=== PATIENT | male | born 1955 | race Two or more races ===

== ENCOUNTER 2020-04-23 11:57 | Outpatient (REF) | payer MEDICARE, MEDICAID, SELFPAY ==
--- NOTE | 2020-04-23 | XR_ITS ---
EXAMINATION: XR LUMBOSACRAL SPINE WITH OBLIQUES CLINICAL INFORMATION: Low back pain. COMPARISON: None TECHNIQUE: AP, both oblique, and lateral views of the lumbar spine. Lateral view of the lumbosacral junction. FINDINGS: There is normal lumbar lordosis and spinal alignment. Mild multilevel degenerative disc disease is seen from L2-L3 to L5-S1 with disc space narrowing and marginal osteophyte formation. The vertebral bodies are intact. There is no acute fracture. The neural foramina are patent. The facet joints are unremarkable. The soft tissues are unremarkable. IMPRESSION: Mild multilevel degenerative changes without acute abnormality.
== END 2020-04-23 11:58 | disposition home or self-care (01) ==
LOC: HO.XRAY 11:57
PROVIDERS: PCP Internal Medicine Geriatric Medicine; Visit Provider Internal Medicine Geriatric Medicine
DX: M54.5 Low back pain (principal)
CPT/HCPCS: 72110

== ENCOUNTER 2020-04-23 13:41 | Outpatient (REF) | payer MEDICARE, MEDICAID, SELFPAY | END 2020-04-23 13:42 | disposition home or self-care (01) | LOC: HO.SH 13:41 | PROVIDERS: Visit Provider Internal Medicine Geriatric Medicine | DX: H90.6 Mixed conductive and sensorineural hearing loss, bilateral (principal); H93.13 Tinnitus, bilateral | CPT/HCPCS: 72110; 92557; 92567; 92591 ==

== ENCOUNTER 2020-05-08 13:48 | Outpatient (REF) | payer MEDICARE, MEDICAID, SELFPAY | END 2020-05-08 13:49 | disposition home or self-care (01) | LOC: HO.HAP 13:48 | PROVIDERS: Visit Provider Internal Medicine Geriatric Medicine | DX: Z46.1 Encounter for fitting and adjustment of hearing aid (principal) | CPT/HCPCS: 92595; V5011; V5020; V5160; V5261; V5266 ==

== ENCOUNTER 2020-05-22 11:23 | Outpatient (REF) | payer MEDICARE, MEDICAID, SELFPAY ==
[2020-05-22 13:40] LABS: Blood Urea Nitrogen 11 mg/dL (9-16); Estimated Glomerular Filt Rate > 60
== END 2020-05-22 11:24 | disposition home or self-care (01) ==
LOC: HO.LAB 11:23
PROVIDERS: PCP Internal Medicine Geriatric Medicine; Visit Provider Internal Medicine Geriatric Medicine
DX: I82.220 Acute embolism and thrombosis of inferior vena cava (principal); I10 Essential (primary) hypertension
CPT/HCPCS: 82565; 84520

== ENCOUNTER 2020-05-25 09:37 | Outpatient (REF) | payer MEDICARE, MEDICAID, SELFPAY ==
--- NOTE | 2020-05-25 09:44 | CT_ITS ---
EXAMINATION: CT ANGIOGRAM ABDOMEN AND PELVIS CLINICAL INFORMATION: Abdominal wall. Question horseshoe kidney. Small echogenic area in the proximal IVC seen on ultrasound. COMPARISON: Previous abdominal ultrasound 04/18/2020 TECHNIQUE: Multiple axial images were obtained through the abdomen and pelvis following the administration of 85 mL of Omnipaque 350 intravenous contrast. Images were reviewed on a dedicated 3-D workstation. This CT examination was performed using dose optimization techniques as appropriate, variously including the following: *Automated exposure control *Adjustment of mA and/or kV according to patient size (this includes techniques or standardized protocols for targeted exams where dose is matched to indication/reason for exam; i.e. extremities or head) *Use of iterative reconstruction technique DLP: 315 mGy-cm FINDINGS: Vascular: The abdominal aorta is normal in caliber. The celiac axis, SMA and ANNE MARIE are normal in caliber and patent. There is a single right renal artery. There are 2 left renal arteries. The renal arteries are patent. The common, internal and external iliac arteries are patent and normal in caliber. The common femoral arteries are patent and normal in caliber. The femoral bifurcations are normal. The IVC is not optimally opacified and possible thrombus or lead cannot be assessed The lung bases are clear. The liver and gallbladder are unremarkable. The spleen is unremarkable. The pancreas is unremarkable. The adrenal glands are unremarkable. There is a horseshoe kidney. No renal stone, mass or hydronephrosis is seen. The bladder is not optimally distended. The prostate gland is unremarkable. Small and large bowel is unremarkable. There is a small umbilical hernia containing fat. No ascites or adenopathy is seen. Review of bone history degenerative spondylosis. CT/CT angio abdomen pelvis IMPRESSION: Horseshoe kidney. Single right renal artery. 2 left renal arteries. Small umbilical hernia containing fat. The IVC is not optimally opacified with contrast and the questioned ultrasound finding is difficult to assess.
[2020-05-25] MEDS: iohexoL 350 MG/ML 100 ML INFUS..BTL IV (10:25)
== END 2020-05-25 09:38 | disposition home or self-care (01) ==
LOC: HO.CT 09:37
PROVIDERS: PCP Internal Medicine Geriatric Medicine; Visit Provider Internal Medicine Geriatric Medicine
DX: I82.220 Acute embolism and thrombosis of inferior vena cava (principal); R51.9 Headache, unspecified
CPT/HCPCS: 74174; Q9967

== ENCOUNTER 2020-07-10 15:48 | Outpatient (REF) | payer MEDICARE, MEDICAID, SELFPAY ==
--- NOTE | 2020-07-10 | PFT_ITS ---
Forced vital capacity is slightly decreased. FEV1, RDQ45-02, and MVV are normal. Post bronchodilator therapy, no significant change. Total lung capacity is slightly decreased. Residual volume normal. Diffusion capacity normal. CONCLUSION: Very mild degree of restrictive pulmonary disorder. No obstructive airway disorder. No significant response to bronchodilator therapy. Clinical correlation recommended. MD LUIS Lemos/EDILSON / [id number]
== END 2020-07-10 15:49 | disposition home or self-care (01) ==
LOC: HO.RESP 15:48
PROVIDERS: PCP Internal Medicine Geriatric Medicine; Visit Provider Internal Medicine Geriatric Medicine
DX: R05 Cough (principal)
CPT/HCPCS: 94060; 94727; 94729

== ENCOUNTER → 2020-07-17 14:09 | Outpatient (REF) | payer MEDICARE, MEDICAID, SELFPAY | LOC: HO.SL 14:09 | PROVIDERS: PCP Internal Medicine Geriatric Medicine; Visit Provider Internal Medicine Geriatric Medicine | DX: G47.33 Obstructive sleep apnea (adult) (pediatric) (principal); G47.10 Hypersomnia, unspecified; R06.83 Snoring; R40.0 Somnolence; I10 Essential (primary) hypertension | CPT/HCPCS: 95806 ==

== ENCOUNTER 2020-09-10 11:48 | Outpatient (REF) | payer MEDICARE, MEDICAID, SELFPAY ==
--- NOTE | ~2020-09-10 | XR_ITS ---
EXAMINATION: XR SHOULDER, RIGHT CLINICAL INFORMATION: Pain in right shoulder COMPARISON: None TECHNIQUE: AP external rotation, Grashey, scapular Y, and axillary views of the right shoulder. FINDINGS: There is mild acromioclavicular osteoarthritis. Glenohumeral joint is well preserved. No fracture. Alignment is anatomic. Soft tissues are normal with no abnormal calcifications. Partially visualized lower cervical fusion hardware. XR/XR shoulder RT min 2V IMPRESSION: Mild right acromioclavicular joint arthrosis.
--- NOTE | ~2020-09-10 | XR_ITS ---
EXAMINATION: XR SHOULDER, LEFT CLINICAL INFORMATION: Pain in left shoulder COMPARISON: None TECHNIQUE: AP external rotation, Grashey, scapular Y, and axillary views of the left shoulder. FINDINGS: The bones and soft tissues are normal. No fracture. Glenohumeral and acromioclavicular alignment is anatomic with normal joint space. No abnormal soft tissue calcifications. XR/XR shoulder LT min 2V IMPRESSION: No acute osseous abnormality of the left shoulder.
== END 2020-09-10 11:49 | disposition home or self-care (01) ==
LOC: HO.XRAY 11:48
PROVIDERS: PCP Internal Medicine Geriatric Medicine; Referring Provider Internal Medicine Geriatric Medicine; Visit Provider Orthopaedic Surgery
DX: M25.511 Pain in right shoulder (principal); M25.512 Pain in left shoulder; I10 Essential (primary) hypertension; E78.00 Pure hypercholesterolemia, unspecified; F41.8 Other specified anxiety disorders; Z88.5 Allergy status to narcotic agent; Z91.018 Allergy to other foods; Z98.890 Other specified postprocedural states
CPT/HCPCS: 20610; 73030; 99202; J1100

== ENCOUNTER → 2021-08-08 13:02 | Outpatient (BNVA) | payer MEDICARE, MEDICAID, SELFPAY | PROVIDERS: PCP Internal Medicine Geriatric Medicine; Visit Provider Urology | DX: N40.1 Benign prostatic hyperplasia with lower urinary tract symptoms (principal); R39.11 Hesitancy of micturition; R97.20 Elevated prostate specific antigen [PSA] | CPT/HCPCS: 99202 ==

== ENCOUNTER 2021-09-13 14:23 | Outpatient (REF) | payer MEDICARE, MEDICAID, SELFPAY ==
[2021-09-13 17:30] LABS: PSA,Total (Free>4and<10) 4.51 ng/mL (0.00-4.00)
[2021-09-16 11:17] LABS: Free Prostate Spec Ag 0.6 ng/mL; Percent Free Prostate Spec Ag 14 % (calc) (>25); Prostate Specific Ag Total 4.3 ng/mL (< OR = 4.0)
== END 2021-09-13 14:24 | disposition home or self-care (01) ==
LOC: HO.LAB 14:23
PROVIDERS: PCP Internal Medicine Geriatric Medicine; Visit Provider Urology
DX: Z12.5 Encounter for screening for malignant neoplasm of prostate (principal); N13.8 Other obstructive and reflux uropathy; N40.1 Benign prostatic hyperplasia with lower urinary tract symptoms
CPT/HCPCS: 36415; 84153; 84154

== ENCOUNTER → 2021-09-24 14:56 | Outpatient (BNVA) | payer MEDICARE, MEDICAID, SELFPAY | PROVIDERS: PCP Internal Medicine Geriatric Medicine; Visit Provider Urology | DX: R97.20 Elevated prostate specific antigen [PSA] (principal); N40.1 Benign prostatic hyperplasia with lower urinary tract symptoms; R35.0 Frequency of micturition; R39.11 Hesitancy of micturition | CPT/HCPCS: 51798; 99212 ==

== ENCOUNTER 2022-01-24 08:37 | Outpatient (REF) | payer MEDICARE, MEDICAID, SELFPAY ==
--- NOTE | ~2022-01-24 | XR_ITS ---
EXAMINATION: XR LUMBOSACRAL SPINE CLINICAL INFORMATION: Low back pain. COMPARISON: None. TECHNIQUE: Three views of the lumbosacral spine. FINDINGS: There is maintained lumbar lordosis. The vertebral heights, alignment and disc heights are normal. There is mild ventral spondylosis at L2-L3 through L4-L5 disc level. No acute fracture, lytic or sclerotic process seen. SI joints are normal. The soft tissues are normal. XR/XR lumbar spine 2-3V IMPRESSION: Mild endplate spondylosis L2-L3, through L4-L5 disc levels. No visible acute fracture or dislocation seen.
== END 2022-01-24 08:38 | disposition home or self-care (01) ==
LOC: HO.XRAY 08:37
PROVIDERS: Absent Provider Internal Medicine Geriatric Medicine; PCP Internal Medicine Geriatric Medicine; Visit Provider Registered Nurse Community Health
DX: M54.50 Low back pain, unspecified (principal)
CPT/HCPCS: 72100

== ENCOUNTER 2022-07-18 09:59 | Outpatient (REF) | payer MEDICARE, MEDICAID, SELFPAY ==
[2022-07-18 14:19] LABS: PSA,Total (Free>4and<10) 4.76 ng/mL (0.00-4.00)
[2022-07-22 07:29] LABS: Free Prostate Spec Ag 0.7 ng/mL; Percent Free Prostate Spec Ag 16 % (calc) (>25); Prostate Specific Ag Total 4.3 ng/mL (< OR = 4.0)
== END 2022-07-18 10:00 | disposition home or self-care (01) ==
LOC: HO.LAB 09:59
PROVIDERS: PCP Internal Medicine Geriatric Medicine; Visit Provider Urology
DX: Z12.5 Encounter for screening for malignant neoplasm of prostate (principal); N13.8 Other obstructive and reflux uropathy; N40.1 Benign prostatic hyperplasia with lower urinary tract symptoms; R97.20 Elevated prostate specific antigen [PSA]
CPT/HCPCS: 36415; 84153; 84154

== ENCOUNTER 2023-07-21 10:27 | Outpatient (REF) | payer MEDICARE, MEDICAID, SELFPAY ==
[2023-07-21 11:05] LABS: MANUAL DIFF FLAG NO
[2023-07-21 11:07] LABS: Basophils Absolute Auto 0.1 X10*3/uL (0.0-0.2); Basophils Percent Auto 0.5 % (0-2); Eosinophils Absolute Auto 0.1 X10*3/uL (0.0-0.4); Eosinophils Percent Auto 0.8 % (0-4); Hematocrit 48.1 % (42.0-52.0); Hemoglobin 15.3 g/dl (14.0-18.0); Imm Gran Abs Auto 0.11 X10*3/uL (0.00-0.03); Imm Gran Pct Auto 1.1 % (0.0-0.4); Lymphocytes Absolute Auto 2.2 X10*3/uL (1.2-4.9); Lymphocytes Percent Auto 20.7 % (20-40); Mean Corpuscular HGB Conc 31.8 g/dl (31.0-36.0); Mean Platelet Volume 9.3 fL (9.4-12.4); Monocytes Absolute Auto 0.8 X10*3/uL (0.1-1.2); Monocytes Percent Auto 7.4 % (2-11); Neutrophils Absolute Auto 7.3 x10*3/uL (2.0-8.3); Neutrophils Percent Auto 69.5 % (45-73); Platelet Count 287 X10*3/uL (160-400); Red Blood Count 5.66 X10*6/uL (4.60-5.80); Red Cell Distribution Width 13.7 % (11.0-16.0); White Blood Count 10.4 X10*3/uL (4.8-10.8)
[2023-07-21 12:06] LABS: Alanine Aminotransferase 32 U/L (0-40); Albumin Level 4.4 g/dL (3.5-5.0); Alkaline Phosphatase 94 U/L (39-117); Anion Gap 14 (12-20); Aspartate Amino Transferase 17 U/L (5-37); Bilirubin Total 0.4 mg/dL (0.0-1.0); Blood Urea Nitrogen 20 mg/dL (9-16); Calcium 10.1 mg/dL (8.4-10.2); Carbon Dioxide 27 mmol/L (22-29); Chloride 104 mmol/L (96-108); Cholesterol 205 mg/dL (<200); Estimated Glomerular Filt Rate 58; Glucose Random 83 mg/dL (60-115); HDL Cholesterol 68 mg/dL (>40); LDL Cholesterol Calculated 120 mg/dL (<100); Potassium 5.2 mmol/L (3.3-5.1); Sodium 140 mmol/L (135-145); Total Protein 7.6 g/dL (6.5-8.0); Triglycerides 87 mg/dL (<150)
[2023-07-21 12:08] LABS: Microalbum/Creatinine Ratio Ur 4.4 ug/mg cr (<30)
== END 2023-07-21 10:28 | disposition home or self-care (01) ==
LOC: HO.HHCL 10:27
PROVIDERS: Visit Provider Internal Medicine Geriatric Medicine
DX: I10 Essential (primary) hypertension (principal); Z85.040 Personal history of malignant carcinoid tumor of rectum; Z79.899 Other long term (current) drug therapy
CPT/HCPCS: 36415; 80053; 80061; 82043; 82570; 85025

== ENCOUNTER 2023-09-15 13:21 | Outpatient (AMB) | payer MEDICARE, MEDICAID, SELFPAY ==
--- NOTE | 2023-09-15 13:22 | MHC.OFFVIS ---
Intake Intake Visit Reasons: Personal Hx malignant carcinoid tumor of rectum Intake Note: Maik presents as a telehealth today Allergies mushroom Allergy (Severe, Verified 09/15/23 13:22) Swelling morphine Allergy (Unknown, Uncoded 09/15/23 13:22) nausea HPI HPI Comments History of Present Illness Details This is a 68-year-old gentleman with past medical history of carcinoid tumor of the rectum diagnosed in who has been referred to us for surveillance colonoscopy. Currently, pt describes No acute gastrointestinal complaints. He does not report any abdominal pain, nausea, diarrhea, blood in stool. He in fact does not recall prior history of rectal carcinoid or where this was diagnosed. From the PCP notes, appears to have been under care of Porter GALICIA. No fam hx of CRC in first degree relatives but does report hx of gastric ca in his mother. Reports has never had an EGD. Not sure if checked for H Pylori. [facility] Medical History Bilateral shoulder pain Acid reflux High blood cholesterol Sciatica Neck problem Depression Thoracic back sprain Anxiety Asthma Hypertension Surgical History History of cataract removal with insertion of prosthetic lens History of cervical spinal surgery Social History Alcohol intake: never Current occupational status: retired Review of Systems Const All systems reviewed & are unremarkable except as noted in HPI and below Physical Exam Vital Signs: Phone televisit Assessment & Plan Assessment & Plan (1) Carcinoid tumor of rectum: Code(s): D3A.026 - Benign carcinoid tumor of the rectum (2) Family history of gastric carcinoma: Code(s): Z80.0 - Family history of malignant neoplasm of digestive organs Plan From available records, was supposed to have a surveillance colonoscopy in 2020, for which he is overdue. In addition, given family history of gastric cancer, would recommend at least one time upper endoscopy exam with mapping biopsies as well as checking H Pylori. PLan: - EGD/ colo to be booked - Split PEG prep reviewed over the phone - Follow up after endo Medications: New peg 3350-electrolytes 236-22.74-6.74 -5.86 gram (Golytely) as per split prep instructions, until fecal effluent is clear 240 mL PO Q10M 4,000 mL 0RF colonoscopy Telehealth Telehealth Location of provider rendering services: practice address Location of patient: address on file Patient Identification confirmed using: Name, : Yes Telehealth method: voice only Patient verbally consented to treatment: Yes Patient verbally consented to billing insurance company: Yes Patient informed of any privacy concerns related to visit: Yes Minutes spent on Phone/Video with Pt.: 15 Coding Level of Care Code Tele New Pt Level 4 (96691) Diagnoses Carcinoid tumor of rectum D3A.026 Family history of gastric carcinoma Z80.0
== END 2023-09-15 15:53 | disposition home or self-care (01) ==
LOC: HO.HGI 13:22
PROVIDERS: PCP Internal Medicine Geriatric Medicine; Visit Provider Internal Medicine
DX: D3A.026 Benign carcinoid tumor of the rectum (principal); Z80.0 Family history of malignant neoplasm of digestive organs
CPT/HCPCS: 99442

== ENCOUNTER → 2023-09-15 13:21 | Outpatient (BNVA) | payer MEDICARE, MEDICAID, SELFPAY | PROVIDERS: PCP Internal Medicine Geriatric Medicine; Visit Provider Internal Medicine ==

== ENCOUNTER → 2023-10-15 14:52 | Outpatient (REF) | payer MEDICARE, MEDICAID, SELFPAY ==
--- NOTE | 2023-10-15 14:55 | CA_ITS ---
Transthoracic Echocardiogram Patient (Last, First, Middle): Maik Pham A Gender: Male Date of : 1955 Age: 68 Procedure Date: 10/15/2023 Procedure Type: Transthoracic Echocardiogram Location: OP Height: 185.42 cm Weight: 111.59 kg BSA: 2.35 m2 Heart Rate: bpm BP: 144 / 100 mmHg Obstetrics Gyn: CODI Referring MD: Eric Montoya MD Customer Service Advisor: Yosi Lewis MD Symptoms: I10. HTN Study Quality: Adequate ECG Rhythm: Sinus Conclusions: - 1. Normal LV ejection fraction 55-60% with grade 1 diastolic dysfunction 2. Mild aortic regurgitation 3. Normal RV systolic pressure 4. Mildly dilated ascending aorta 3.9 cm 5. No gross pericardial effusion Findings Left Ventricle Normal left ventricular size, thickness, and systolic function. The visually estimated ejection fraction is between 55-60%. There is no dynamic left ventricular outflow tract obstruction. Spectral Doppler is indicative of an impaired relaxation filling pattern. E/E prime ratio is <8, consistent with normal filling pressures. Evidence suggests grade I (mild) diastolic dysfunction. There is mild septal asymmetric hypertrophy. Peak GLS is 14.7%, moderately reduced. Right Ventricle Normal right ventricular cavity size and systolic function. Atria The left atrium is likely dilated. Interatrial shunt cannot be excluded. The right atrium is normal in size. Aortic Valve Normal aortic valve structure and function. There is no aortic valve stenosis. There is mild aortic valve regurgitation. Mitral Valve Normal mitral valve structure and function. There is trace mitral valve regurgitation. There is no mitral valve stenosis. Pulmonic Valve The pulmonic valve is likely normal. There is trace pulmonic valve regurgitation. Tricuspid Valve Normal tricuspid valve structure. There is trace tricuspid valve regurgitation. The right ventricular systolic pressure is normal. The right ventricular systolic pressure is 18 mmHg. Normal right atrial pressure. There is no evidence of pulmonary hypertension. Great Vessels The pulmonary artery was not well visualized. There is mild dilatation of the ascending aorta measuring 3.90 cm. Venous The inferior vena cava is normal in size and collapses greater than 50% with inspiration. Pericardium/Pleural There is no evidence of pericardial effusion. Prior Study Comparison No prior study available for comparison. Measurements 2D Linear Measurements IVSd: 1.24 0.6-0.9/0.6-1.0 cm LVIDd: 4.36 3.9-5.3/4.2-5.9 cm LVIDd Index: 1.86 2.4-3.2/2.2-3.1 cm/m2 LVIDs: 2.40 2.0-3.6 cm LVPWd: 1.04 0.7-1.1 cm LA Diam: 3.90 2.7-3.8/3.0-4.0 cm LAIDs Index: 1.66 1.5-2.3 cm/m2 LV Mass: 218.27 67-162/88-224 g LV Mass Index: 92.88 43-95/49-115 g/m2 LVOT Diam: 2.30 3.0+(-)1.3 cm 2D Systolic Function EF 4C: 55.20 >55% EF 2C: 57.00 >55% EF BiP: 56.10 >55% Mitral Valve MV Pk E: 0.39 MV PK A: 0.43 MV Decel Time: 235.00 E/A: 0.90 E'Lateral: 6.85 E'Medial: 5.77 E/E' Med: 6.80 E/E' Lat: 5.80 PHT: 69.00 MVA PHT: 3.19 Decel Armstrong: 1.68 Aortic Valve AoV Pk Erwin: 1.21 AoV Mn Erwin: 0.88 AoV VTI: 0.25 AoV Pk Grad: 6.00 Aov Mn Grad: 3.00 MARILIN Cont.VTI: 3.09 AI Pk Erwin: 3.70 AI Armstrong: 1.78 LVOT LVOT Pk Erwin: 0.88 LVOT Mn Erwin: 0.59 LVOT VTI: 0.19 LVOT Pk Grad: 3.00 LVOT Mn Grad: 2.00 LVOT Diam: 2.30 LVOT Area: 4.15 Diastolic Function MV Pk E: 0.39 MV Pk A: 0.43 E/A: 0.90 E'Medial: 5.77 E/E' Med: 6.80 E' Laterial: 6.85 E/E' Lat: 5.80 Right Ventricle TAPSE (mm): 25.80 TVS' Erwin: 10.90 Tricuspid Valve TR Pk Erwin: 1.91 TR Pk Grad: 15.00 RA Press: 3.00 RVSP: 18.00 Great Vessels Aorta Sinus of Valsalva: 3.72 2.0-3.5 cm Ao Asc: 3.90 2.1-3.4 cm Updated in Other Vendor System with Status of Final Yosi Lewis MD electronically signed on 10/16/2023 1:31:46 PM with status of Final
== END ==
LOC: HO.CARD 14:52
PROVIDERS: PCP Internal Medicine Geriatric Medicine; Visit Provider Internal Medicine Geriatric Medicine
DX: I10 Essential (primary) hypertension (principal)
CPT/HCPCS: 93306; 93356

== ENCOUNTER → 2023-10-15 14:55 | Outpatient (BNV) | payer MEDICARE, MEDICAID, SELFPAY | PROVIDERS: PCP Internal Medicine Geriatric Medicine; Visit Provider Internal Medicine Cardiovascular Disease | DX: I36.1 Nonrheumatic tricuspid (valve) insufficiency (principal) | CPT/HCPCS: 93306 ==

== ENCOUNTER 2024-04-13 08:48 | Outpatient (REF) | payer MEDICARE, MEDICAID, SELFPAY ==
[2024-04-13 11:40] LABS: Anion Gap 10 (12-20); Blood Urea Nitrogen 15 mg/dL (9-16); Calcium 9.8 mg/dL (8.4-10.2); Carbon Dioxide 29 mmol/L (22-29); Chloride 104 mmol/L (96-108); Estimated Glomerular Filt Rate > 60; Glucose Random 119 mg/dL (60-115); Sodium 139 mmol/L (135-145)
== END 2024-04-13 08:49 | disposition home or self-care (01) ==
LOC: HO.HHCL 08:48
PROVIDERS: Visit Provider Internal Medicine Geriatric Medicine
DX: I10 Essential (primary) hypertension (principal)
CPT/HCPCS: 36415; 80048

== ENCOUNTER 2024-08-05 11:01 | Outpatient (AMB) | payer MEDICARE, MEDICAID, SELFPAY ==
--- NOTE | 2024-08-05 11:04 | A.OFFVIS_ITS ---
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 Intake Note: New patient dx chest pain believe he had stress test maybe 7-8 years ago was in [facility] ed in Nov for chest pain Medical Bill Processor Required: Yes Medical Bill Processor Services: Medical Bill Processor Offered & Declined Rn Enterostomal: Rn Enterostomal Present Accompanied by: Spouse Allergies mushroom Allergy (Severe, Verified 09/15/23 13:22) Swelling morphine Allergy (Intermediate, Verified 06/24/24 10:34) Nausea Medication List - Last Reconciled 08/05/24 by Yosi Lewis MD acetaminophen 325 mg PO Q8H PRN albuterol sulfate 90 mcg/actuation (Ventolin HFA) 2 puffs inhalation Q4H PRN amlodipine-valsartan 10-320 mg 1 tab PO DAILY aspirin 81 mg PO DAILY PRN carboxymethylcellulose-glycern 0.5-0.9 % (Refresh Optive) 1 drp ophthalmic (eye) QID celecoxib 100 mg PO DAILY cetirizine 10 mg PO DAILY docusate sodium 100 mg PO DAILY fluticasone furoate 200 mcg/actuation (Arnuity Ellipta) 1 inh inhalation DAILY fluticasone propionate 220 mcg/actuation 1 puff PO BID fluticasone propionate 50 mcg/actuation sprays intranasal hydroxyzine HCl 25 mg PO BEDTIME PRN meloxicam 7.5 mg PO QAM montelukast 10 mg PO DAILY naloxone 4 mg/actuation (Narcan) 4 mg intranasal Q2M PRN naproxen 500 mg PO BID PRN omeprazole 40 mg PO DAILY oxycodone 10 mg PO BID PRN peg 3350-electrolytes 236-22.74-6.74 -5.86 gram (Golytely) 240 mL PO Q10M polyvinyl alcohol 1.4% 1 drp ophthalmic (eye) BID sildenafil (Viagra) 50 mg PO DAILY PRN HPI Comments Details: Thank you for referring Maik in cardiology consultation today for precordial chest discomfort. Patient is accompanied by his who acts as interpreter for the deaf. They declined a certified interpreter for the deaf. Patient has been having symptoms of precordial chest pain for the last few months. He describes as tingling pressure-like discomfort in the precordial area mostly happening at rest. Symptoms last for few minutes. Symptoms can also happen with exercise as per the . Also compensated exertional shortness of breath. He has longstanding history of hypertension which is controlled but sometimes with cervical spine related discomfort blood pressure remains high. He was family history of premature coronary artery disease in mother requiring coronary artery bypass grafting at his age group. He has no history of hypertension. Has mild hyperlipidemia currently not on any medications. He denies any prolonged palpitation irregular heartbeat. No lightheadedness, syncope. He does have at nighttime notices apneic spells and says gets really called and then wakes up shivering. Patient denies any orthopnea, PND, leg edema. Patient does have exertional shortness of breath. [facility] Medical History Bilateral shoulder pain Acid reflux High blood cholesterol Sciatica Neck problem Depression Thoracic back sprain Anxiety Asthma Hypertension Surgical History History of cataract removal with insertion of prosthetic lens History of cervical spinal surgery Social History Alcohol intake: never Current occupational status: retired Review of Systems Const Denies chills, Denies daytime sleepiness, Denies fatigue, Denies fever(s), Denies frequent falls, Denies poor appetite, Denies snoring, Denies stops breathing during sleep, Denies weakness, Denies weight gain and Denies weight loss Eyes Denies loss of vision ENT Denies dizziness and Denies hearing loss Card Denies chest pain, Denies claudication, Denies leg edema, Denies lightheadedness, Denies palpitations, Denies dyspnea, Denies dyspnea on exertion and Denies orthopnea Resp Denies cough, Denies excessive phlegm production, Denies dyspnea, Denies dyspnea on exertion, Denies snoring and Denies wheezing GI Denies abdominal pain, Denies hematochezia, Denies change in bowel habits, Denies nausea and Denies vomiting Denies dysuria and Denies urinary frequency Musc Denies arthralgias, Denies muscle weakness, Denies numbness and Denies other (frequent falls) Skin/Breast Denies nail changes and Denies rash Neuro Denies Abnormal speech present, Denies dizziness, Denies frequent falls, Denies loss of vision, Denies memory loss, Denies numbness and Denies weakness Psych Denies depression and Denies memory loss Endo Denies fatigue and Denies palpitations Nicloás/Lymph Reports easy bruising and Reports other (anemia) Aller/Immun Denies wheezing Physical Exam Vital Signs: Last Vital Signs Pulse 84 08/05/24 11:05 BP 130/80 08/05/24 11:05 BMI result Body Mass Index 32.0 Const General: cooperative, comfortable, no acute distress, well developed, alert and awake Nutritional Appearance: well nourished and obese Orientation/consciousness: patient oriented x3 Limitations: no limitations HEENT Head: Yes normocephalic and Yes atraumatic Neck Neck: Yes trachea midline, Yes supple and Yes no JVD Resp Effort & Inspection: normal respiratory effort Auscultation: clear to auscultation bilaterally Cardio Jugular venous distension: no JVD Palpation: normal PMI Rate: regular rate Rhythm: regular rhythm Heart sounds: S1 normal heart sound present, S2 normal heart sound present, no click, no gallops, no murmurs and no rubs GI Auscultation: normal bowel sounds Skin General skin exam: no rashes or lesions noted Neuro General: patient oriented x3 and no focal motor deficits Speech: No Abnormal speech present Extrem General: Yes no clubbing, cyanosis or edema Office Procedures EKG Details: EKG shows normal sinus rhythm with PACs as well as PVCs nonspecific ST T wave changes [id number], Complete Assessment & Plan Assessment & Plan (1) Atypical chest pain: Code(s): R07.89 - Other chest pain Category: Medical Plan: Atypical chest pain this elderly gentleman with multiple risk factors including hypertension, family history with limited exercise capacity. EKG showed left anterior fascicular block with nonspecific ST T wave changes. Recommend exercise myocardial perfusion imaging to further evaluate for myocardial ischemia as cause of his chest pain. Less likely. If this is negative, would recommend a GI workup. Also suggest echocardiogram to evaluate LV systolic and diastolic function to evaluate for LVH and hypertensive heart disease as well as pulmonary hypertension. These tests will be scheduled in near future. Further treatment based on the findings. He is also noted to have episodes that are highly suggestive of sleep apnea and possibly bradycardia at nighttime. Would suggest a 30 day event monitor to evaluate for the same as well as home sleep study to evaluate for the same. Further treatment based on the finding. (2) Hypertension: Code(s): I10 - Essential (primary) hypertension Category: Medical Plan: Hypertension which is currently well optimized on current therapy. Importance of good blood pressure control was discussed. Continue current therapy. Low- salt diet was discussed. Workup of sleep apnea as above. Adequate bleeding control was discussed. Stress mitigation strategies was discussed. Target goal blood pressure less than 130/84. Also would consider statin therapy to target goal LDL less than 70 mg/dL. Will follow up in the clinic in 2 months time, sooner p.r.n.. Thank you for allowing me to partake in his care Orders: Orders NM cardiolite stress test 2 Weeks R07.89 - Other chest pain, R07.9 - Chest pain, unspecified RT home sleep study Today R06.81 - Apnea, not elsewhere classified CA stress test Today R07.89 - Other chest pain CA echo transthoracic complete Today R07.89 - Other chest pain ECG 30 day event monitor Today R07.89 - Other chest pain Coding Level of Care Code New Pt Level 4 (29978) Diagnoses Atypical chest pain R07.89 Hypertension I10 CPT Codes EKG - CPT: 23453-[id number], Complete ([id number])
[2024-08-05 11:05] VITALS: BP 130/80; PULSE 84; BMI 32.0
== END 2024-08-05 12:48 | disposition home or self-care (01) ==
PROVIDERS: PCP Internal Medicine Geriatric Medicine; Visit Provider Internal Medicine Cardiovascular Disease
DX: R07.89 Other chest pain (principal); I10 Essential (primary) hypertension; I49.1 Atrial premature depolarization; I49.3 Ventricular premature depolarization
CPT/HCPCS: 93010; 99214

== ENCOUNTER → 2024-08-05 11:01 | Outpatient (BNVA) | payer MEDICARE, MEDICAID, SELFPAY | PROVIDERS: PCP Internal Medicine Geriatric Medicine; Visit Provider Internal Medicine Cardiovascular Disease | DX: R07.89 Other chest pain (principal); I10 Essential (primary) hypertension; R94.31 Abnormal electrocardiogram [ECG] [EKG] | CPT/HCPCS: 93005; 99212 ==

== ENCOUNTER → 2024-08-23 10:01 | Outpatient (BNV) | payer MEDICARE, MEDICAID, SELFPAY | PROVIDERS: PCP Internal Medicine Geriatric Medicine; Visit Provider Internal Medicine | DX: I42.2 Other hypertrophic cardiomyopathy (principal) | CPT/HCPCS: 93306 ==

== ENCOUNTER 2024-10-03 15:28 | Outpatient (REF) | payer MEDICARE, MEDICAID, SELFPAY | END 2024-10-03 15:29 | disposition home or self-care (01) | LOC: HO.CT 15:28 | PROVIDERS: PCP Internal Medicine Geriatric Medicine; Visit Provider Internal Medicine Cardiovascular Disease | DX: R06.81 Apnea, not elsewhere classified (principal); R06.83 Snoring | CPT/HCPCS: 95806 ==

== ENCOUNTER → 2024-10-03 15:37 | Outpatient (BNV) | payer MEDICARE, MEDICAID, SELFPAY | PROVIDERS: PCP Internal Medicine Geriatric Medicine; Visit Provider Internal Medicine | DX: R06.83 Snoring (principal); G47.10 Hypersomnia, unspecified | CPT/HCPCS: 95806 ==

== ENCOUNTER → 2024-11-16 08:04 | Outpatient (REF) | payer MEDICARE, MEDICAID, SELFPAY ==
--- OUTSIDE RECORDS SUMMARY | 2024-11-16 08:08 | XMS_ITS | Encounter Summary ---
Author Organization [employer] Address [address] [facility] [address] [place] [address] Care Team Providers Care Hogshead Hand Name Role Phone Name, Eric MUNGUIA Primary Care Provider [phone] Lauren Alexis PharmD Unavailable [phone] Reason for Visit * Reason Onset Date Comments Med Refill 03/17/2024 Encounter Details Date Type Department Care Team (Late st Contact Info) Description 03/17/2024 Refill [facility] MEDICINE [address], [place] [id number] Name, MD Eric [address], [place] [phone] Social History Tobacco Use Types Packs/Day Years Used Date Smoking Tobacco: Never Smokeless Tobacco: Never Alcohol Use Standard Drinks/Week Comments Never 0 (1 standard drink = 0.6 oz pur e alcohol) Alcohol Answer Date Recorded Frequency of Alcohol Consumption Not on file 02/24/2024 Average Number of Drinks Not on file 024 Frequency of Binge Drinking Not on file 01/2024 Score 0 02/24/2024 Depression Answer Date Recorded Patient Health Questionnaire-9 Score 0 02/24/2024 Patient Health Questionnaire-9 Score 0 02/24/2024 Last PHQ-9: Questionnaire Data Not on file 0 02/24/2024 Housing Stability Answer Date Recorded What is your housing situation today? I have sandy johnson 02/24/[address] you li ve. Do you have problems with any of the following? None of the above 02/24/2024 Food Insecurity Answer Date Recorded Within the past 12 months, y ou worried that your food would run out before you got money to buy more: Never True 02/24/2024 Within the past 12 months,th e food you bought just didn't last and you didn't have enough money to get more: Never True 01/2024 Transportation Answer Date Recorded In the past 12 months, has l ack of transportation kept you from medical appts, meetings, work or from getting things needed for daily living? No 02/24/2024 Utilities Answer Date Recorded In the past 12 months, has t he electric, gas, oil or water company threatened to shut off services in your home? No 02/24/2024 Depression Answer Date Recorded Patient Health Questionnaire-2 Score 0 02/24/2024 Internet Access Answer Date Recorded Internet Access Q1 No 03/21/2024 Internet Access Q2 I do not want or need it 08/2023 Sex and Gender Information Value Date Recorded Sex Assigned at Male 05/19/2022 10:23 AM EDT Legal Sex Male 10:23 AM EDT Gender Identity Male 05/19/2022 10:23 AM EDT Sexual Orientation Straight 05/19/2022 10 :23 AM EDT documented as of this encounter Plan of Treatment Upcoming Encounters Date Type Department Care Team (Late st Contact Info) Description 12/28/2024 11:30 AM EDT Clinical Support [facility] MEDICINE [address] [place] [phone] Andreia Lyles RN 01/11/2025 3:30 PM EDT Office Visit [facility] MED[facility]INE [address] [place] [phone] Eric Montoya MD [address] [place] [phone] documented as of this encounter Visit Diagnoses Not on filedocumented in this encounter Additional Health Concerns Assessment Noted Time PHQ-9 Depression Total Score: 0 02/24/20 24 3:45 PM EDT documented as of this encounter Care Teams Hogshead Hand Relationship Specialty Start Date End Date Eric Montoya MD [address] [place] [id number] PCP - General Family Medicine 09/14/15 Lauren Alexis, AnnD [address] [place] [phone] Pharmacist Internal Medicine 04/19/24 documented as of this encounter
--- OUTSIDE RECORDS SUMMARY | 2024-11-16 08:08 | XMS_ITS | Encounter Summary ---
Author Organization [employer] Address [address] [place] [address] 7t [place] [address] Care Team Providers Care Medical Insurance Coding Specialist Name Role Phone Name, Eric MUNGUIA Primary Care Provider [phone] Lauren Alexis PharmD Unavailable Reason for Visit * Reason Onset Date Comments Med Refill 01/23/2023 Encounter Details Date Type Department Care Team (Late st Contact Info) Description 01/23/2023 Refill [facility] [address] [place] [address] Yudelka Kaiser MD [address] [place], [place] [phone] Essential hypertension Social History Tobacco Use Types Packs/Day Years Used Date Smoking Tobacco: Never Smokeless Tobacco: Never Alcohol Use Standard Drinks/Week Comments Never 0 (1 standard drink = 0.6 oz pur e alcohol) Depression Answer Date Recorded Patient Health Questionnaire-9 Score 0 12/23/2022 Depression Answer Date Recorded Patient Health Questionnaire-2 Score 0 12/23/2022 Sex and Gender Information Value Date Recorded Sex Assigned at Male 05/19/2022 10:23 AM EDT Legal Sex Male 10:23 AM EDT Gender Identity Male 05/19/2022 10:23 AM EDT Sexual Orientation Straight 05/19/2022 10 :23 AM EDT documented as of this encounter Plan of Treatment Upcoming Encounters Date Type Department Care Team (Late st Contact Info) Description 12/28/2024 11:30 AM EDT Clinical Support [facility] [address] [place] [address] Andreia Lyles RN 01/11/2025 3:30 PM EDT Office Visit [facility] [address] [place] [address] Name, MD Eric [address] [place] [address] documented as of this encounter Visit Diagnoses Diagnosis Essential hypertension Unspecified essential hypertension documented in this encounter Additional Health Concerns Assessment Noted Time PHQ-9 Depression Total Score: 0 12/24/19 23 4:02 PM EDT documented as of this encounter Care Teams Medical Insurance Coding Specialist Relationship Specialty Start Date End Date Name, MD Eric [address] [place] [address] PCP - General Family Medicine 09/14/15 Lauren Alexis PharmD [address] [place] [address] Pharmacist Internal Medicine 04/19/24 documented as of this encounter
--- OUTSIDE RECORDS SUMMARY | 2024-11-16 08:08 | XMS_ITS | Encounter Summary ---
Author Organization [employer] Address [address] [place] [address] 7 [place] [address] Care Team Providers Care Exchange Architect Name Role Phone Name, Eric MUNGUIA Primary Care Provider [phone] Lauren Alexis PharmD Unavailable Reason for Visit * Reason Onset Date Comments Appointment Request 01/27/2023 Encounter Details Date Type Department Care Team (Late st Contact Info) Description 01/27/2023 Telephone [facility] 230 [place], [place] [phone] Name, MD Eric [address] [place], [place] [phone] Appointment Request Social History Tobacco Use Types Packs/Day Years [...] AM EDT documented as of this encounter Miscellaneous Notes * Telephone Encounter - Niki Mathew - 01/27/2023 1:35 PM EDT Tc from documented in this encounter Plan of Treatment Upcoming Encounters Date Type Department Care Team (Late st Contact Info) Description 12/28/2024 11:30 AM EDT Clinical Support [address] [place] [address] Andreia Lyles RN 01/11/2025 3:30 PM EDT Office Visit [address] [address] Name, MD Eric [address] [place] [address] documented as of this encounter Visit Diagnoses Not on filedocumented in this encounter Additional Health Concerns Assessment Noted Time PHQ-9 Depression Total Score: 0 12/24/19 23 4:02 PM EDT documented as of this encounter Care Teams Exchange Architect Relationship Specialty Start Date End Date Name, MD Eric [address] [place] [address] PCP - General Family Medicine 09/14/15 Lauren Alexis PharmD [address] [place] [address] Pharmacist Internal Medicine 04/19/24 documented as of this encounter
--- OUTSIDE RECORDS SUMMARY | 2024-11-16 08:08 | XMS_ITS | Encounter Summary ---
Author Organization [employer] Address [address] [facility] 7 [place] [address] Care Team Providers Care Foxing Cutting Machine Operator Name Role Phone Name, Eric MUNGUIA Primary Care Provider [phone] Lauren Alexis PharmD Unavailable [phone] Reason for Visit * Reason Onset Date Comments Med Refill 03/17/2024 Encounter Details Date Type Department Care Team (Late st Contact Info) Description 03/17/2024 Refill [facility] 230 [place], [place] [phone] Name, MD Eric 230 [place], [place] [phone] Social History Tobacco Use Types Packs/Day Years [...] Description 12/28/2024 11:30 AM EDT Clinical Support [facility] [address] [place] [address] Andreia Lyles RN 01/11/2025 3:30 PM EDT Office Visit [facility] [address] [place] [address] Eric Montoya MD [address] [place] [address] documented as of this encounter Visit Diagnoses Not on filedocumented in this encounter Additional Health Concerns Assessment Noted Time PHQ-9 Depression Total Score: 0 02/24/20 24 3:45 PM EDT documented as of this encounter Care Teams Foxing Cutting Machine Operator Relationship Specialty Start Date End Date Eric Montoya MD [address] [place] [address] PCP - General Family Medicine 09/14/15 Lauren Alexis, AnnD [address] [place] [address] Pharmacist Internal Medicine 04/19/24 documented as of this encounter
--- OUTSIDE RECORDS SUMMARY | 2024-11-16 08:08 | XMS_ITS | Encounter Summary ---
Author Organization [employer] Address [address] [facility] 7t [place] [address] Care Team Providers Care Manager Books Name Role Phone Name, Eric MUNGUIA Primary Care Provider [phone] Lauren Alexis PharmD Unavailable [phone] Reason for Visit * Reason Onset Date Comments Med Refill 08/17/2024 Encounter Details Date Type Department Care Team (Late st Contact Info) Description 08/17/2024 Refill [facility] 230 [place], [place] [phone] Name, MD Eric 230 [place], [place] [phone] Unspecified asthma with (acute) exacerbation Social History Tobacco Use Types Packs/Day Years Used Date Smoking Tobacco: Never Passive Smoke Exposure: Never Smokeless Tobacco: Never Alcohol Use Standard Drinks/Week Comments Never 0 (1 standard drink = 0.6 oz pur e alcohol) Alcohol Answer Date Recorded Frequency of Alcohol Consumption Not on file 02/24/2024 Average Number of Drinks Not on file 024 Frequency of Binge Drinking Not on file 0801/2024 Score 0 02/24/2024 Depression Answer Date Recorded [...] Description 12/28/2024 11:30 AM EDT Clinical Support [facility] [address] [place] [address] Andreia Lyles RN 01/11/2025 3:30 PM EDT Office Visit [facility] [address] [place] [address] Eric Montoya MD 230 [place] [address] documented as of this encounter Visit Diagnoses Diagnosis Unspecified asthma with (acute) exacerbation documented in this encounter Additional Health Concerns Assessment Noted Time PHQ-9 Depression Total Score: 0 02/24/20 24 3:45 PM EDT documented as of this encounter Care Teams Manager Books Relationship Specialty Start Date End Date NameEric MD [address] [place] [address] PCP - General Family Medicine 09/14/15 Lauren Alexis, Amanda [address] [place] [address] Pharmacist Internal Medicine 04/19/24 documented as of this encounter
--- OUTSIDE RECORDS SUMMARY | 2024-11-16 08:08 | XMS_ITS | Encounter Summary ---
Author Organization [employer] Address 75 [facility] [address] [place] [address] Care Team Providers Care Flight Deck Officer Name Role Phone Name, Eric MUNGUIA Primary Care Provider [phone] Lauren Alexis PharmD Unavailable [phone] Reason for Visit * Reason Comments Med Refill Encounter Details Date Type Department Care Team (Late st Contact Info) Description 03/17/2024 Refill [facility] 230 [place], [place] [phone] Name, MD Eric 230 [place], [place] [phone] Chronic neck pain with history of cervical spinal surgery Social History Tobacco Use Types Packs/Day Years [...] Description 12/28/2024 11:30 AM EDT Clinical Support [facility] [address] [place] [address] Andreia Lyles RN 01/11/2025 3:30 PM EDT Office Visit [facility] [address] [place] [address] Eric Montoya MD [address] [place] [address] documented as of this encounter Visit Diagnoses Diagnosis Chronic neck pain with history of cervical spinal surgery documented in this encounter Additional Health Concerns Assessment Noted Time PHQ-9 Depression Total Score: 0 02/24/20 24 3:45 PM EDT documented as of this encounter Care Teams Flight Deck Officer Relationship Specialty Start Date End Date Eric Montoya MD [address] [place] [address] PCP - General Family Medicine 09/14/15 Lauren Alexis, AnnD [address] [place] [address] Pharmacist Internal Medicine 04/19/24 documented as of this encounter
--- OUTSIDE RECORDS SUMMARY | 2024-11-16 08:08 | XMS_ITS | Encounter Summary ---
Author Organization [employer] Address 75 [facility] 7 [place] [address] Care Team Providers Care Stitch Rubber Name Role Phone Name, Eric MUNGUIA Primary Care Provider [phone] Lauren Alexis PharmD Unavailable [phone] Reason for Visit * Reason Onset Date Comments Med Refill 03/17/2024 Encounter Details Date Type Department Care Team (Late st Contact Info) Description 03/17/2024 Refill [facility] 230 [place], [place] [phone] Name, MD Eric 230 [place], [place] [phone] Social History Tobacco Use Types Packs/Day Years [...] Description 12/28/2024 11:30 AM EDT Clinical Support [facility] [address] [place] [address] Andreia Lyles RN 01/11/2025 3:30 PM EDT Office Visit [facility] [address] [place] [address] Eric Montoya MD [address] [place] [address] documented as of this encounter Visit Diagnoses Not on filedocumented in this encounter Additional Health Concerns Assessment Noted Time PHQ-9 Depression Total Score: 0 02/24/20 24 3:45 PM EDT documented as of this encounter Care Teams Stitch Rubber Relationship Specialty Start Date End Date Eric Montoya MD [address] [place] [address] PCP - General Family Medicine 09/14/15 Lauren Alexis, AnnD [address] [place] [address] Pharmacist Internal Medicine 04/19/24 documented as of this encounter
--- OUTSIDE RECORDS SUMMARY | 2024-11-16 08:09 | XMS_ITS | Encounter Summary ---
Author Organization [employer] Address 75 [facility] 7t [place] [address] Care Team Providers Care Telescope Maintenance Name Role Phone Name, Eric MUNGUIA Primary Care Provider [phone] Lauren Alexis PharmD Unavailable [phone] Reason for Visit * Reason Onset Date Comments Med Refill 05/18/2024 Encounter Details Date Type Department Care Team (Late st Contact Info) Description 05/18/2024 Refill [facility] 230 [place], [place] [phone] Name, MD Eric 230 [place], [place] [phone] Erectile dysfunction, unspecified erectile dysfunction type Social History Tobacco Use Types Packs/Day Years [...] Description 12/28/2024 11:30 AM EDT Clinical Support [facility] [address] [place] [address] Andreia Lyles RN 01/11/2025 3:30 PM EDT Office Visit [facility] [address] [place] [address] Eric Montoya MD [address] [place] [address] documented as of this encounter Visit Diagnoses Diagnosis Erectile dysfunction, unspecified erectile dysfunction type documented in this encounter Additional Health Concerns Assessment Noted Time PHQ-9 Depression Total Score: 0 02/24/20 24 3:45 PM EDT documented as of this encounter Care Teams Telescope Maintenance Relationship Specialty Start Date End Date Eric Montoya MD [address] [place] [address] PCP - General Family Medicine 09/14/15 Lauren Alexis, Amanda [address] [place] [address] Pharmacist Internal Medicine 04/19/24 documented as of this encounter
--- OUTSIDE RECORDS SUMMARY | 2024-11-16 08:09 | XMS_ITS | Encounter Summary ---
Author Organization [employer] Address 75 [facility] 7t [place] [address] Care Team Providers Care Post Hole Digger Name Role Phone Name, Eric MUNGUIA Primary Care Provider [phone] Lauren Alexis PharmD Unavailable [phone] Reason for Visit * Reason Onset Date Comments Med Refill 05/18/2024 Encounter Details Date Type Department Care Team (Late st Contact Info) Description 05/18/2024 Refill [facility] [address] [place] [address] Name, MD Eric 230 [place], [place] [phone] Social History Tobacco Use Types Packs/Day Years [...] EDT Clinical Support [facility] [address] [place] [address] Andreia Lyles RN 01/11/2025 3:30 PM EDT Office Visit [facility] [address] [place] [address] Eric Montoya MD [address] [place] [address] documented as of this encounter Visit Diagnoses Not on filedocumented in this encounter Additional Health Concerns Assessment Noted Time PHQ-9 Depression Total Score: 0 02/24/20 24 3:45 PM EDT documented as of this encounter Care Teams Post Hole Digger Relationship Specialty Start Date End Date Eric Montoya MD [address] [place] [address] PCP - General Family Medicine 09/14/15 Lauren Alexis, Amanda 230 [place] [address] Pharmacist Internal Medicine 04/19/24 documented as of this encounter
--- OUTSIDE RECORDS SUMMARY | 2024-11-16 08:09 | XMS_ITS | Encounter Summary ---
Author Organization [employer] Address 75 [facility] 7 [place] [address] Care Team Providers Care Adz Worker Name Role Phone Name, Eric MUNGUIA Primary Care Provider [phone] Lauren Alexis PharmD Unavailable [phone] Reason for Visit * Reason Onset Date Comments Med Refill 03/17/2024 Encounter Details Date Type Department Care Team (Late st Contact Info) Description 03/17/2024 Refill [facility] 230 [place], [place] [phone] Name, MD Eric 230 [place], [place] [phone] Social History Tobacco Use Types Packs/Day Years [...] Description 12/28/2024 11:30 AM EDT Clinical Support [facility] [address] [place] [address] Andreia Lyles RN 01/11/2025 3:30 PM EDT Office Visit [facility] [address] [place] [address] Eric Montoya MD [address] [place] [address] documented as of this encounter Visit Diagnoses Not on filedocumented in this encounter Additional Health Concerns Assessment Noted Time PHQ-9 Depression Total Score: 0 02/24/20 24 3:45 PM EDT documented as of this encounter Care Teams Adz Worker Relationship Specialty Start Date End Date Eric Montoya MD [address] [place] [address] PCP - General Family Medicine 09/14/15 Lauren Alexis, AnnD [address] [place] [address] Pharmacist Internal Medicine 04/19/24 documented as of this encounter
--- OUTSIDE RECORDS SUMMARY | 2024-11-16 08:09 | XMS_ITS | Encounter Summary ---
Author Organization [employer] Address 75 [facility] 7t [place] [address] Care Team Providers Care Waiter Name Role Phone Name, Eric MUNGUIA Primary Care Provider [phone] Lauren Alexis PharmD Unavailable Reason for Visit * Reason Onset Date Comments Med Refill 04/15/2024 Encounter Details Date Type Department Care Team (Late st Contact Info) Description 04/15/2024 Refill [facility] 230 [place], [place] [phone] Name, MD Eric 230 [place], [place] [phone] Essential hypertension; Chronic neck pain with history of cervical [...] Description 12/28/2024 11:30 AM EDT Clinical Support [facility] [address] [place] [address] Andreia Lyles RN 01/11/2025 3:30 PM EDT Office Visit [facility] [address] [place] [address] Eric Montoya MD [address] [place] [address] documented as of this encounter Visit Diagnoses Diagnosis Essential hypertension Unspecified essential hypertension Chronic neck pain with history of cervical spinal surgery documented in this encounter Additional Health Concerns Assessment Noted Time PHQ-9 Depression Total Score: 0 02/24/20 24 3:45 PM EDT documented as of this encounter Care Teams Waiter Relationship Specialty Start Date End Date Eric Montoya MD [address] [place] [address] PCP - General Family Medicine 09/14/15 Lauren Alexis, AnnD [address] [place] [address] Pharmacist Internal Medicine 04/19/24 documented as of this encounter
--- OUTSIDE RECORDS SUMMARY | 2024-11-16 08:09 | XMS_ITS | Encounter Summary ---
Author Organization [employer] Address 75 [facility] 7t [place] [address] Care Team Providers Care Merchandise Planning Manager Name Role Phone Name, Eric MUNGUIA Primary Care Provider [phone] Lauren Alexis PharmD Unavailable [phone] Reason for Visit * Reason Onset Date Comments Med Refill 03/17/2024 Encounter Details Date Type Department Care Team (Late st Contact Info) Description 03/17/2024 Refill [facility] 230 [place], [place] [phone] Name, MD Eric 230 [place], [place] [phone] Chronic neck pain with history of cervical spinal surgery; Essential hypertension Social History Tobacco Use Types [...] 12/28/2024 11:30 AM EDT Clinical Support [facility] [address] [place] [address] Andreia Lyles RN 01/11/2025 3:30 PM EDT Office Visit [facility] [address] [place] [address] Eric Montoya MD [address] [place] [address] documented as of this encounter Visit Diagnoses Diagnosis Chronic neck pain with history of cervical spinal surgery Essential hypertension Unspecified essential hypertension documented in this encounter Additional Health Concerns Assessment Noted Time PHQ-9 Depression Total Score: 0 02/24/20 24 3:45 PM EDT documented as of this encounter Care Teams Merchandise Planning Manager Relationship Specialty Start Date End Date Eric Montoya MD [address] [place] [address] PCP - General Family Medicine 09/14/15 Lauren Alexis, AnnD [address] [place] [address]16 Pharmacist Internal Medicine 04/19/24 documented as of this encounter
--- OUTSIDE RECORDS SUMMARY | 2024-11-16 08:09 | XMS_ITS | Encounter Summary ---
Author Organization [employer] Address 75 [facility] 7 [place] [address] Care Team Providers Care Court Collections Officer Name Role Phone Name, Eric MUNGUIA Primary Care Provider [phone] Lauren Alexis PharmD Unavailable [phone] Reason for Visit * Reason Onset Date Comments Med Refill 05/20/2024 Encounter Details Date Type Department Care Team (Late st Contact Info) Description 05/20/[address] [facility] 230 [place], [place] [phone] Name, MD Eric 230 [place], [place] [phone] Social History Tobacco Use Types Packs/Day Years [...] Description 12/28/2024 11:30 AM EDT Clinical Support [facility] [address] [place] [address] Andreia Lyles RN 01/11/2025 3:30 PM EDT Office Visit [facility] [address] [place] [address] Eric Montoya MD [address] [place] [address] documented as of this encounter Visit Diagnoses Not on filedocumented in this encounter Additional Health Concerns Assessment Noted Time PHQ-9 Depression Total Score: 0 02/24/20 24 3:45 PM EDT documented as of this encounter Care Teams Court Collections Officer Relationship Specialty Start Date End Date Eric Montoya MD [address] [place] [address] PCP - General Family Medicine 09/14/15 Lauren Alexis, AnnD [address] [place] [address]662 Pharmacist Internal Medicine 04/19/24 documented as of this encounter
--- OUTSIDE RECORDS SUMMARY | 2024-11-16 08:10 | XMS_ITS | Encounter Summary ---
Author Organization [employer] Address 75 [facility] 7t [place] [address] Care Team Providers Care Bisque Kiln Placer Name Role Phone Name, Eric MUNGUIA Primary Care Provider [phone] Lauren Alexis PharmD Unavailable [phone] Reason for Visit * Reason Onset Date Comments Med Refill 03/17/2024 Encounter Details Date Type Department Care Team (Late st Contact Info) Description 03/17/2024 Refill [facility] 230 [place], [place] [phone] Name, MD Eric 230 [place], [place] [phone] Chronic neck pain with history of cervical [...] Description 12/28/2024 11:30 AM EDT Clinical Support [facility] [address] [place] [address] Andreia Lyles RN 01/11/2025 3:30 PM EDT Office Visit [facility] [address] [place] [address] Eric Montoya MD [address] [place] [address] documented as of this encounter Visit Diagnoses Diagnosis Chronic neck pain with history of cervical spinal surgery documented in this encounter Additional Health Concerns Assessment Noted Time PHQ-9 Depression Total Score: 0 02/24/20 24 3:45 PM EDT documented as of this encounter Care Teams Bisque Kiln Placer Relationship Specialty Start Date End Date Eric Montoya MD [address] [place] [address] PCP - General Family Medicine 09/14/15 Lauren Alexis, Amanda [address] [place] [address]01 Pharmacist Internal Medicine 04/19/24 documented as of this encounter
--- OUTSIDE RECORDS SUMMARY | 2024-11-16 08:10 | XMS_ITS | Encounter Summary ---
Author Organization [employer] Address [address] [place] [address] 7 [place] [address] Care Team Providers Care Credit Collections Specialist Name Role Phone Name, Eric MUNGUIA Primary Care Provider [phone] Lauren Alexis PharmD Unavailable Encounter Details Date Type Department Care Team ([facility] Contact Info) Description 12/12/2022 [facility] 230 [place], [place] [phone] Name, MD Eric 230 [place], [place] [phone] Social History Tobacco Use Types Packs/Day Years Used Date Smoking Tobacco: Never Smokeless Tobacco: Never Alcohol Use Standard Drinks/Week Comments Never 0 (1 standard drink = 0.6 oz pur e alcohol) Sex and Gender Information Value Date Recorded Sex Assigned at Male 05/19/2022 10:23 AM EDT Legal Sex Male 10:23 AM EDT Gender Identity Male 05/19/2022 10:23 AM EDT Sexual Orientation Straight 05/19/2022 10 :23 AM EDT COVID-19 Exposure Response Date Recorded In the last 10 days, have yo u been in contact with someone who was confirmed or suspected to have Coronavirus/COVID-19? No / Unsure 12/11/2022 9:51 AM EDT documented as of this encounter Plan of Treatment Upcoming Encounters Date Type Department Care Team (Late Contact Info) Description 12/28/2024 11:30 AM EDT Clinical Support [facility] MED[facility]INE 230 [place], [place] [phone] Andreia Lyles, RN 01/11/2025 3:30 PM EDT Office Visit [facility] [address] [place], [place] [phone] Name, MD Eric [address] [place] [address] 13685 documented as of this encounter Visit Diagnoses Not on filedocumented in this encounter Care Teams Credit Collections Specialist Relationship Specialty Start Date End Date Name, MD Eric [address] [place] [address] 47[address] PCP - General Family Medicine 09/14/15 Lauren Alexis PharmD [address] [place] [address] 57426 Pharmacist Internal Medicine 04/19/24 documented as of this encounter
--- OUTSIDE RECORDS SUMMARY | 2024-11-16 08:10 | XMS_ITS | Encounter Summary ---
Author Organization [employer] Address 75 [facility] 7t [place] [address] Care Team Providers Care Prototype Engineer Manager Name Role Phone Name, Eric MUNGUIA Primary Care Provider [phone] Lauren Alexis PharmD Unavailable [phone] Reason for Visit * Reason Onset Date Comments Med Refill 08/17/2024 Encounter Details Date Type Department Care Team (Late st Contact Info) Description 08/17/2024 Refill [facility] MEDICINE 230 [place], [place] [phone] Name, MD Eric 230 [place], [place] [phone] Essential hypertension Social History Tobacco Use Types [...] Description 12/28/2024 11:30 AM EDT Clinical Support [facility] [address] [place] [address] Andreia Lyles RN 01/11/2025 3:30 PM EDT Office Visit [facility] [address] [place] [address] Eric Montoya MD [address] [place] [address] 17046 documented as of this encounter Visit Diagnoses Diagnosis Essential hypertension Unspecified essential hypertension documented in this encounter Additional Health Concerns Assessment Noted Time PHQ-9 Depression Total Score: 0 02/24/20 24 3:45 PM EDT documented as of this encounter Care Teams Prototype Engineer Manager Relationship Specialty Start Date End Date Eric Montoya MD [address] [place] [address]65 PCP - General Family Medicine 09/14/15 Lauren Alexis, Amanda [address] [place] [address] 73179 Pharmacist Internal Medicine 04/19/24 documented as of this encounter
--- OUTSIDE RECORDS SUMMARY | 2024-11-16 08:10 | XMS_ITS | Encounter Summary ---
Author Organization [employer] Address 75 [facility] 7t [place] [address] Care Team Providers Care Freelance Translator Name Role Phone Name, Eric MUNGUIA Primary Care Provider [phone] Lauren Alexis PharmD Unavailable [phone] Reason for Visit * Reason Onset Date Comments Med Refill 03/17/2024 Encounter Details Date Type Department Care Team (Late st Contact Info) Description 03/17/2024 Refill [facility]INE 230 [place], [place] [phone] Name, MD Eric 230 [place], [place] [phone] Chronic neck pain with history of cervical [...] Description 12/28/2024 11:30 AM EDT Clinical Support [facility] [address] [place] [address] Andreia Lyles RN 01/11/2025 3:30 PM EDT Office Visit [facility] [address] [place] [address] Eric Montoya MD [address] [place] [address] 6[address] documented as of this encounter Visit Diagnoses Diagnosis Chronic neck pain with history of cervical spinal surgery documented in this encounter Additional Health Concerns Assessment Noted Time PHQ-9 Depression Total Score: 0 02/24/20 24 3:45 PM EDT documented as of this encounter Care Teams Freelance Translator Relationship Specialty Start Date End Date Eric Montoya MD [address] [place] [address] 70440 PCP - General Family Medicine 09/14/15 Lauren Alexis, Amanda [address] [place] [address] 91011 Pharmacist Internal Medicine 04/19/24 documented as of this encounter
--- OUTSIDE RECORDS SUMMARY | 2024-11-16 08:10 | XMS_ITS | Encounter Summary ---
Author Organization [employer] Address [address] [place] [address] 7t [place] [address] Care Team Providers Care Methods Specialist Name Role Phone Name, Eric MUNGUIA Primary Care Provider [phone] Lauren Alexis PharmD Unavailable [phone] Reason for Visit * Reason Onset Date Comments Med Refill 06/17/2024 Encounter Details Date Type Department Care Team (Late st Contact Info) Description 06/17/2024 Refill [facility] MEDICINE 230 [place], [place] [phone] Name, MD Eric 230 [place], [place] [phone] Social History Tobacco Use Types Packs/Day Years [...] t he electric, gas, oil or water [employer] threatened to shut off services in your [...] Clinical Support [facility] MEDICINE [address] [place] [address] Andreia Lyles RN 01/11/2025 3:30 PM EDT Office Visit [facility] MEDICINE [address] [place] [address] NameEric MD [address] [place] [address] 52981 documented as of this encounter Visit Diagnoses Not on filedocumented in this encounter Additional Health Concerns Assessment Noted Time PHQ-9 Depression Total Score: 0 02/24/20 24 3:45 PM EDT documented as of this encounter Care Teams Methods Specialist Relationship Specialty Start Date End Date Eric Montoya MD [address] [place] [address] PCP - General Family Medicine 09/14/15 Lauren Alexis, AnnD [address] [place] [address] 59249 Pharmacist Internal Medicine 04/19/24 documented as of this encounter
--- OUTSIDE RECORDS SUMMARY | 2024-11-16 08:10 | XMS_ITS | Encounter Summary ---
Author Organization [employer] Address 75 [facility] 7t [place] [address] Care Team Providers Care Detention Worker Name Role Phone Name, Eric MUNGUIA Primary Care Provider [phone] Lauren Alexis PharmD Unavailable [phone] Reason for Visit * Reason Onset Date Comments Med Refill 08/17/2024 Encounter Details Date Type Department Care Team (Late st Contact Info) Description 08/17/2024 Refill [facility] MEDICINE 230 [place], [place] [phone] Name, MD Eric 230 [place], [place] [phone] Chest pain, unspecified type Social History Tobacco Use Types Packs/Day [...] Description 12/28/2024 11:30 AM EDT Clinical Support [facility] MEDICINE [address] [place] [address] Andreia Lyles RN 01/11/2025 3:30 PM EDT Office Visit [facility]INE [address] [place] [address] Eric Montoya MD [address] [place] [address] documented as of this encounter Visit Diagnoses Diagnosis Chest pain, unspecified type documented in this encounter Additional Health Concerns Assessment Noted Time PHQ-9 Depression Total Score: 0 02/24/20 24 3:45 PM EDT documented as of this encounter Care Teams Detention Worker Relationship Specialty Start Date End Date Eric Montoya MD [address] [place] [address] 6[address]14 PCP - General Family Medicine 09/14/15 Lauren Alexis, Amanda [address] [place] [address] 88571 Pharmacist Internal Medicine 04/19/24 documented as of this encounter
--- OUTSIDE RECORDS SUMMARY | 2024-11-16 08:10 | XMS_ITS | Encounter Summary ---
Author Organization [employer] Address 75 [facility] 7t [place] [address] Care Team Providers Care Fence Installer Name Role Phone Name, Eric MUNGUIA Primary Care Provider [phone] Lauren Alexis PharmD Unavailable [phone] Reason for Visit * Reason Onset Date Comments Med Refill 06/17/2024 Encounter Details Date Type Department Care Team (Late st Contact Info) Description 06/17/2024 Refill [facility] MEDICINE 230 [place], [place] [phone] Name, MD Eric 230 [place], [place] [phone] Erectile dysfunction, unspecified erectile dysfunction type Social [...] Description 12/28/2024 11:30 AM EDT Clinical Support [facility] MEDICINE [address] [place] [address] Andreia Lyles RN 01/11/2025 3:30 PM EDT Office Visit [facility] [address] [place] [address] Eric Montoya MD [address] [place] [address] documented as of this encounter Visit Diagnoses Diagnosis Erectile dysfunction, unspecified erectile dysfunction type documented in this encounter Additional Health Concerns Assessment Noted Time PHQ-9 Depression Total Score: 0 02/24/20 24 3:45 PM EDT documented as of this encounter Care Teams Fence Installer Relationship Specialty Start Date End Date NameEric MD [address] [place] [address] 80060 PCP - General Family Medicine 09/14/15 Lauren Alexis, Amanda [address] [place] [address] 90407 Pharmacist Internal Medicine 04/19/24 documented as of this encounter
--- OUTSIDE RECORDS SUMMARY | 2024-11-16 08:10 | XMS_ITS | Encounter Summary ---
Author Organization [employer] Address [address] [place] [address] 7t [place] [address] Care Team Providers Care Briefcase Sewer Name Role Phone Name, Eric MUNGUIA Primary Care Provider [phone] Lauren Alexis PharmD Unavailable [phone] Reason for Visit * Reason Onset Date Comments Med Refill 08/17/2024 Encounter Details Date Type Department Care Team (Late st Contact Info) Description 08/17/2024 Refill [facility] MEDICINE 230 [place], [place] [phone] Name, MD Eric 230 [place], [place] [phone] Social History Tobacco Use Types Packs/Day Years [...] t he electric, gas, oil or water [employer] threatened to shut off services in your [...] 11:30 AM EDT Clinical Support [facility] MEDICINE [address] [place] [address] Andreia Lyles RN 01/11/2025 3:30 PM EDT Office Visit [facility] MED[facility]INE [address] [place] [address] NameEric MD [address] [place] [address] 24108 documented as of this encounter Visit Diagnoses Not on filedocumented in this encounter Additional Health Concerns Assessment Noted Time PHQ-9 Depression Total Score: 0 02/24/20 24 3:45 PM EDT documented as of this encounter Care Teams Briefcase Sewer Relationship Specialty Start Date End Date Eric Montoya MD [address] [place] [address] 72390 PCP - General Family Medicine 09/14/15 Lauren Alexis, AnnD [address] [place] [address] 27934 Pharmacist Internal Medicine 04/19/24 documented as of this encounter
--- OUTSIDE RECORDS SUMMARY | 2024-11-16 08:10 | XMS_ITS | Encounter Summary ---
Author Organization [employer] Address 75 [facility] 7t [place] [address] Care Team Providers Care Change Control Coordinator Name Role Phone Name, Eric MUNGUIA Primary Care Provider [phone] Lauren Alexis PharmD Unavailable Reason for Visit * Reason Onset Date Comments Med Refill 08/17/2024 Encounter Details Date Type Department Care Team (Late st Contact Info) Description 08/17/2024 Refill [facility] MEDICINE 230 [place], [place] [phone] Name, MD Eric 230 [place], [place] [phone] Chronic neck pain with history of cervical [...] Description 12/28/2024 11:30 AM EDT Clinical Support [facility] MEDICINE [address] [place] [address] 87011 Andreia Lyles RN 01/11/2025 3:30 PM EDT Office Visit [facility] [address] [place] [address] 88205 NameEric MD [address] [place] [address] 19992 documented as of this encounter Visit Diagnoses Diagnosis Chronic neck pain with history of cervical spinal surgery documented in this encounter Additional Health Concerns Assessment Noted Time PHQ-9 Depression Total Score: 0 02/24/20 24 3:45 PM EDT documented as of this encounter Care Teams Change Control Coordinator Relationship Specialty Start Date End Date Name, MD Eric [address] [place] [address] 73491 PCP - General Family Medicine 09/14/15 Lauren Alexis, Amanda [address] [place] [address] [phone] Pharmacist Internal Medicine 04/19/24 documented as of this encounter
--- OUTSIDE RECORDS SUMMARY | 2024-11-16 08:10 | XMS_ITS | Encounter Summary ---
Author Organization [employer] Address [address] [place] [address] 7t [place] [address] Care Team Providers Care Steam Setter Name Role Phone Name, Eric MUNGUIA Primary Care Provider [phone] Lauren Alexis PharmD Unavailable [phone] Reason for Visit * Reason Onset Date Comments Med Refill 08/17/2024 Encounter Details Date Type Department Care Team (Late st Contact Info) Description 08/17/2024 Refill [facility] MEDICINE 230 [place], [place] [phone] Name, MD Eric 230 [place], [place] [phone] Social History Tobacco Use Types Packs/Day Years [...] t he electric, gas, oil or water [employer] threatened to shut off services in your [...] Description 12/28/2024 11:30 AM EDT Clinical Support [facility] MEDICINE [address] [place] [address] Andreia Lyles RN 01/11/2025 3:30 PM EDT Office Visit [facility] MED[facility]INE [address] [place] [address] 35999 NameEric MD [address] [place] [address] 37043 documented as of this encounter Visit Diagnoses Not on filedocumented in this encounter Additional Health Concerns Assessment Noted Time PHQ-9 Depression Total Score: 0 02/24/20 24 3:45 PM EDT documented as of this encounter Care Teams Steam Setter Relationship Specialty Start Date End Date Eric Montoya MD [address] [place] [address] 15878 PCP - General Family Medicine 09/14/15 Lauren Alexis, AnnD [address] [place] [address] 43327 Pharmacist Internal Medicine 04/19/24 documented as of this encounter
--- OUTSIDE RECORDS SUMMARY | 2024-11-16 08:10 | XMS_ITS | Encounter Summary ---
Author Organization [employer] Address 75 [facility] 7t [place] [address] Care Team Providers Care Meat Sales And Storage Manager Name Role Phone Name, Eric MUNGUIA Primary Care Provider [phone] Lauren Alexis PharmD Unavailable [phone] Reason for Visit * Reason Onset Date Comments Med Refill 08/17/2024 Encounter Details Date Type Department Care Team (Late st Contact Info) Description 08/17/2024 Refill [facility] MEDICINE 230 [place], [place] [phone] Name, MD Eric 230 [place], [place] [phone] Essential hypertension Social History Tobacco Use Types [...] Clinical Support [facility] MEDICINE [address] [place] [address] 79161 Andreia Lyles RN 01/11/2025 3:30 PM EDT Office Visit [facility] MEDICINE [address] [place] [address] 84290 Eric Montoya MD [address] [place] [address] 98275 documented as of this encounter Visit Diagnoses Diagnosis Essential hypertension Unspecified essential hypertension documented in this encounter Additional Health Concerns Assessment Noted Time PHQ-9 Depression Total Score: 0 02/24/20 24 3:45 PM EDT documented as of this encounter Care Teams Meat Sales And Storage Manager Relationship Specialty Start Date End Date Eric Montoya MD [address] [place] [address] 43458 PCP - General Family Medicine 09/14/15 Lauren Alexis, Amanda [address] [place] [address] 15788 Pharmacist Internal Medicine 04/19/24 documented as of this encounter
--- OUTSIDE RECORDS SUMMARY | 2024-11-16 08:10 | XMS_ITS | Encounter Summary ---
Author Organization [employer] Address [address] [place] [address] 7t [place] [address] Care Team Providers Care Woods Warden Name Role Phone Name, Eric MUNGUIA Primary Care Provider [phone] Lauren Alexis PharmD Unavailable [phone] Reason for Visit * Reason Onset Date Comments Results 12/24/2022 MRI shoulder w/o contrast right. Encounter Details Date Type Department Care Team ([facility] st Contact Info) Description 12/24/2022 Telephone [facility] MEDICINE 230 [place], [place] [phone] Name, MD Eric 230 [place], [place] [phone] Results (MRI shoulder w/o contrast right. //) Social History Tobacco Use Types Packs/Day Years [...] suspected to have Coronavirus/COVID-19? No / Unsure 12/23/2022 3:55 PM EDT documented as of this encounter Miscellaneous Notes * Telephone Encounter - Chloe King RN - 12/24/2022 3:39 PM EDT No recent MRI results noted in pt chart. Request faxed to Ana to send MRI results to Dr. Palacio. * Telephone Encounter - Niki Mathew - 12/24/2022 2:29 PM EDT Tc from [facility] requesting results for MRI shoulder w/o contrast right. Ordering doctor was Dr. Palacio and Ana let her know results were sent to her. documented in this encounter Plan of Treatment Upcoming Encounters Date Type Department Care Team (Late st Contact Info) Description 12/28/2024 11:30 AM EDT Clinical Support [facility] MEDICINE [address] [place] [address] 80202 Andreia Lyles RN 01/11/2025 3:30 PM EDT Office Visit [facility] MEDICINE [address] [place] [address] 6[address] Name, MD Eric [address] [place] [address] 8[address]31 documented as of this encounter Visit Diagnoses Not on filedocumented in this encounter Additional Health Concerns Assessment Noted Time PHQ-9 Depression Total Score: 0 12/24/19 23 4:02 PM EDT documented as of this encounter Care Teams Woods Warden Relationship Specialty Start Date End Date Name, MD Eric [address] [place] [address] 29851 PCP - General Family Medicine 09/14/15 Lauren Alexis PharmD [address] [place] [address] 85145 Pharmacist Internal Medicine 04/19/24 documented as of this encounter
--- OUTSIDE RECORDS SUMMARY | 2024-11-16 08:10 | XMS_ITS | Encounter Summary ---
Author Organization [employer] Address 75 [facility] 7t [place] [address] Care Team Providers Care Training Personnel Supervisor Name Role Phone Name, Eric MUNGUIA Primary Care Provider [phone] Lauren Alexis PharmD Unavailable [phone] Reason for Visit * Reason Onset Date Comments Med Refill 08/19/2024 Encounter Details Date Type Department Care Team (Late st Contact Info) Description 08/19/2024 Refill [facility] MEDICINE 230 [place], [place] [phone] Name, MD Eric 230 [place], [place] [phone] Erectile dysfunction, unspecified erectile dysfunction type Social [...] encounter Miscellaneous Notes * Telephone Encounter - Fanny Will RN - 08/29/2024 10:57 AM EST Images from the original note were not included. Triage call with [facility] [place] [id number],[place]. Regarding Pt portal message below. Pt reports wearing a heart monitor and last night had to remove it due to discomfort. Skin under monitor was raw and painful. Pt is advised to call the facility/MD where heart monitor was placed to notify. Pt agrees. Pt is requesting an apt with PCP as advised from neurosurgery research director. ASK apt with Dr. Montoya 09/06/24 at 915am. Pt agrees with disposition and advice. Home care is reviewed. Insurance is verified as active prior to booking. Protocol Used: Rash or Redness - Localized (Adult) Protocol-Based Disposition: Home Care Positive Triage Question: * Mild localized rash * All higher-acuity triage questions were negative Care Advice Discussed: * Reassurance and Education - Mild Localized Rash * Wash the Area * Don't Scratch * Reasons To Call Back - Rash spreads or becomes worse - Rash lasts longer than 1 week - You become worse [facility]ik [facility] Clinical Support (supporting Eric Montoya MD)1 hour ago (9:18 AM) I need to schedule an appt. I have a skin rash caused by a heart monitor I am supposed to keep on for 30 days and can???t as the glue caused a painful rash documented in this encounter Plan of Treatment Upcoming Encounters Date Type Department Care Team (Late st Contact Info) Description 12/28/2024 11:30 AM EDT Clinical Support [address] [address] Andreia Lyles RN 01/11/2025 3:30 PM EDT Office Visit [address] [address] Eric Montoya MD [address] [place] [address] 86881 documented as of this encounter Visit Diagnoses Diagnosis Erectile dysfunction, unspecified erectile dysfunction type documented in this encounter Additional Health Concerns Assessment Noted Time PHQ-9 Depression Total Score: 0 02/24/20 24 3:45 PM EDT documented as of this encounter Care Teams Training Personnel Supervisor Relationship Specialty Start Date End Date Eric Montoya MD [address] [place] [address]883 PCP - General Family Medicine 09/14/15 Lauren Alexis PharmD [address] [place] [address] 10328 Pharmacist Internal Medicine 04/19/24 documented as of this encounter
--- OUTSIDE RECORDS SUMMARY | 2024-11-16 08:10 | XMS_ITS | Encounter Summary ---
Author Organization [employer] Address [address] [place] [address] 7t [place] [address] Care Team Providers Care Ditching Machine Engineer Name Role Phone Name, Eric MUNGUIA Primary Care Provider Lauren Alexis PharmD Unavailable [phone] Reason for Visit * Reason Onset Date Comments Med Refill 08/17/2024 Encounter Details Date Type Department Care Team (Late st Contact Info) Description 08/17/2024 Refill [facility] MEDICINE 230 [place], [place] [phone] Name, MD Eric 230 [place], [place] [phone] Social History Tobacco Use Types Packs/Day Years [...] t he electric, gas, oil or water [employer] threatened to shut off services in your [...] Description 12/28/2024 11:30 AM EDT Clinical Support [facility] MEDICINE [address] [place] [address]348 Andreia Lyles RN 01/11/2025 3:30 PM EDT Office Visit [facility] MEDICINE [address] [place] [address] 38807 NameEric MD [address] [place] [address] 9[address]14 documented as of this encounter Visit Diagnoses Not on filedocumented in this encounter Additional Health Concerns Assessment Noted Time PHQ-9 Depression Total Score: 0 02/24/20 24 3:45 PM EDT documented as of this encounter Care Teams Ditching Machine Engineer Relationship Specialty Start Date End Date Eric Montoya MD [address] [place] [address]41 PCP - General Family Medicine 09/14/15 Lauren Alexis, AnnD [address] [place] [address] 10220 Pharmacist Internal Medicine 04/19/24 documented as of this encounter
--- OUTSIDE RECORDS SUMMARY | 2024-11-16 08:10 | XMS_ITS | Encounter Summary ---
Author Organization [employer] Address [address] [place] [address] 7t [place] [address] Care Team Providers Care Sales Promotion Manager Name Role Phone Name, Eric MUNGUIA Primary Care Provider [phone] Lauren Alexis PharmD Unavailable [phone] Reason for Visit * Reason Onset Date Comments Med Refill 08/17/2024 Encounter Details Date Type Department Care Team (Late st Contact Info) Description 08/17/2024 Refill [facility] [address] [place], [place] [phone] Name, MD Eric [address] [place], [place] [phone] Social History Tobacco Use Types Packs/Day Years [...] t he electric, gas, oil or water [employer] threatened to shut off services in your [...] Description 12/28/2024 11:30 AM EDT Clinical Support [facility] [address] [place] [phone] Andreia Lyles RN 01/11/2025 3:30 PM EDT Office Visit [facility] [address] [place] [phone] NameEric MD [address] [place] [phone] documented as of this encounter Visit Diagnoses Not on filedocumented in this encounter Additional Health Concerns Assessment Noted Time PHQ-9 Depression Total Score: 0 02/24/20 24 3:45 PM EDT documented as of this encounter Care Teams Sales Promotion Manager Relationship Specialty Start Date End Date Eric Montoya MD [address] [place] [phone] PCP - General Family Medicine 09/14/15 Lauren Alexis, AnnD [address] [place] [phone] Pharmacist Internal Medicine 04/19/24 documented as of this encounter
--- OUTSIDE RECORDS SUMMARY | 2024-11-16 08:10 | XMS_ITS | Clinical Summary ---
Author Organization [employer] Address [address] [place] [address] 7t [place] [address] Care Team Providers Care Ruby On Rails Software Developer Name Role Phone Name, Eric MUNGUIA Primary Care Provider [phone] Lauren Alexis PharmD Unavailable [phone] Allergies Active Allergy Reactions Criticality Noted Date Comments Morphine Nausea Only 01/06/2013 Severe nausea vomiting Other reaction(s): by mouth-dizzy Medications EPINEPHrine (Epipen) 0.3 MG/0.3ML injection syringe inject 0.3 milliliter by intramuscular route once as needed for anaphylaxis Active Refresh Optive 0.5-0.9 % solution PLACE 1 DROP IN EACH EYE FOUR TIMES DAILY 01/07/20 24 Active naloxone (Narcan) 4 mg/0.1 mL nasal sprayIndications :Chronic neck pain with history of cervical spinal surgery Administer 1 spray (4 mg) into affected nostril(s) if needed for opioid reversal. Use 1 full spray (0.1 mL) by intranasal route. Repeat dose in alternating nostrils every 2-3 minutes, as needed 2 each 05/18/20 24 025 Active hydroCHLOROthiaz ursula (HYDRODiuril) 50 MG tabletIndication s:Essential hypertension Take 1 tablet (50 mg) by mouth Once per day. 90 tablet 1 05/18/20 24 Active amLODIPine-valsa rtan (Exforge) 10-320 MG tabletIndication s:Essential hypertension Take 1 tablet by mouth Once per day. 90 tablet 1 05/18/20 24 Active Ventolin HFA 108 (90 Base) MCG/ACT inhaler Inhale 2 puffs Every 4-6 hours as needed for shortness of breath or wheezing. 18 g 11 05/18/20 24 Active fluticasone furoate (Arnuity Ellipta) 200 MCG/ACT inhaler Inhale 1 puff Once per day. Rinse mouth with water after use to reduce aftertaste and incidence of candidiasis. Do not swallow. 1 each 11 05/18/20 24 025 Active omeprazole (PriLOSEC) [address] capsule TAKE 1 CAPSULE BY MOUTH EVERY DAY BEFORE A MEAL 90 capsule 3 05/18/20 24 Active polyethylene glycol, PEG, 3350 (GaviLAX) 17 GM/SCOOP powder TAKE 17 GM MIXED IN 8 OUNCES OF WATER, COFFEE OR TEA ONCE DAILY 510 g 6 05/18/20 24 Active azelastine (Optivar) 0.05 % ophthalmic solution PLACE 1 DROP IN EACH EYE TWICE DAILY 6 mL 2 08/10/19 25 Active Emollient (CeraVe Moisturizing) cream APPLY TO THE AFFECTED AREA(S) EVERY DAY 06/27/20 24 Active acetaminophen (Tylenol) 325 MG tabletIndication s:Chronic neck pain with history of cervical spinal surgery TAKE 2 TABLETS BY MOUTH EVERY 8 HOURS NEEDED FOR PAIN 90 tablet 2 08/17/19 25 Active aspirin 81 MG chewable tabletIndication s:Chest pain, unspecified type CHEW 1 TABLET BY MOUTH EVERY DAY 90 tablet 08/17/19 25 Active naproxen (Naprosyn) 500 MG tabletIndication s:Chronic neck pain with history of cervical spinal surgery TAKE 1 TABLET BY MOUTH TWICE A DAY IF NEEDED FOR PAIN 60 tablet 08/17/19 25 Active cetirizine (ZyrTEC) 10 MG tablet TAKE 1 TABLET BY MOUTH EVERY DAY 90 tablet 3 09/06/19 25 Active docusate sodium (Colace) 100 MG capsuleIndicatio ns:Therapeutic opioid induced constipation Take 1 capsule (100 mg) by mouth 2 times daily. 180 capsule 10/14/19 25 Active fluticasone (Flonase) 50 MCG/ACT nasal sprayIndications :Chronic neck pain with history of cervical spinal surgery SPRAY 2 SPRAYS INTO EACH NOSTRIL EVERY MORNING. 48 g 10/14/19 25 Active mometasone (Elocon) 0.1 % ointment APPLY TOPICALLY ONCE A DAY 45 g 10/14/19 25 Active albuterol (2.5 MG/3ML) 0.083% nebulizer solutionIndicati ons:Unspecified asthma with (acute) exacerbation INHALE 1 AMPULE USING A NEBULIZER FOUR TIMES DAILY 90 mL 3 10/14/19 25 Active atorvastatin (Lipitor) 40 MG tabletIndication s:Hypercholester olemia TAKE 1 TABLET BY MOUTH EVERY DAY 90 tablet 10/14/19 25 Active sildenafil (Viagra) 50 MG tabletIndication s:Erectile dysfunction, unspecified erectile dysfunction type TAKE 1 TABLET 1 HOUR BEFORE SEXUAL RELATIONS ONCE DAILY NEEDED. 10 tablet 10/14/19 25 Active oxyCODONE (Roxicodone) 10 MG immediate release tabletIndication s:Chronic neck pain with history of cervical spinal surgery Take 1 tablet (10 mg) by mouth every 6 (six) hours if needed for severe pain for up to 28 days. 112 tablet 10/18/19 25 Active Active Problems Problem Noted Date Diagnosed Date Allergic rhinitis 09/06/2024 Precordial pain 06/08/2024 Assessment & Plan (06/08/2024 8:24 PM EST): Patient with s/s c/w Unstable angina, had x 1 POS troponin 4d ago but declined further testing at the time so we do not know the trend. Given persistent sxs and recent exacerbation for the past week + EKG with PVCs, I advised him to go to ED for further evaluation. He declined to be taken to ED even though his also asked him to go and that she will drive him if he didn't want to got in an ambulance. He still refused, he understood the potential complications of an ongoing cardiac ischemia including fatal arrhythmias, acute CHF, multiorgan failure among others. He signed a refusal for rx document, he said he will go to ED next time he has CP, he understands that it may or not be life threatening at the time or he could have some other complication. Advised to continue all meds including ASA, statin and BP meds. He said he was going home with his . Personal history of malignant carcinoid tumor of rectum 03/11/2023 Overview (03/12/2023): He was diagnosed at [facility], lesion was removed and he had numerous negative surveillance colonoscopies and sigmodoscopis after. Last negative colonoscopy was 2017 at [facility] and repeat in 3 years was recommended Class 1 obesity 12/23/2022 Acute pain of right shoulder 12/11/2022 Assessment & Plan (12/11/2022 10:56 AM EDT): Apply heat on affected area C/w oxycodone 10mg Q 8hrs I added today baclofen 20mg Q 8hrs ( do not take it together with oxycodone it has to be 2 hrs apart),patient is aware of side effects Raised prostate specific antigen 07/18/2022 Obstructive sleep apnea syndrome 07/18/2022 Insomnia 07/18/2022 Decreased hearing 07/18/2022 Thoracic back sprain 07/18/2022 Shoulder pain 07/18/2022 Asthma without status asthmaticus 06/19/2020 Acute back pain with sciatica 07/08/2017 Therapeutic opioid induced constipation 07/10/20 16 Depression 12/14/2015 Essential hypertension 10/08/2015 Assessment & Plan (06/09/2024 8:59 AM EST): Uncontrolled today. He blames it on the pain, both neck pain and CP. Again, he refused to go to ED. We discussed the importance of taking meds as prescribed, specially BP meds and oxycodone. Advised to RTC if BP continues to be high above 150/100 and fu with PCP. No med changes today, I stressed the importance of him going to ED tonight for better control of HTN in the setting of CP and potential cardiac ischemia or CV complications, he refused. Assessment & Plan (12/11/2022 10:57 AM EDT): Possibly also high due to pain I will re-initiate his lisinopril 40mg daily C/w hydrochlorothiazide 50mg daily f/u with PCP Deviated septum 10/04/2013 Chronic pain 08/30/2013 Anxiety 05/24/2010 Cervical spine degeneration 02/12/2010 DDD (degenerative disc disease), lumbar 01/25/20 10 Hypercholesterolemia 04/05/2009 GERD (gastroesophageal reflux disease) 9 Overview (07/18/2022): Normal EGD 08/01/2010. Resolved Problems Problem Noted Date Diagnosed Date Resolved Date Dyspnea on exertion 07/10/2016 09/22/19 24 Encounters Date Type Department Care Team Description 10/17/2024 Refill [facility] [place] [phone] Eric Montoya MD Chronic neck pain with history of cervical spinal surgery 10/14/2024 Telephone [facility] [place] [address] Eric Montoya MD NTTS 10/13/2024 Refill [facility] [place] [address] Eric Montoya MD Erectile dysfunction, unspecified erectile dysfunction type (Primary Dx); Essential hypertension; Chronic neck pain with history of cervical spinal surgery; Unspecified asthma with (acute) exacerbation; Chronic neck pain with history of cervical spinal surgery; Chest pain, unspecified type; Hypercholesterolemia; Therapeutic opioid induced constipation 10/13/2024 Telephone [facility] [place] [phone] Eric Montoya MD 10/03/2024 Telephone [facility] [place] [address] Amanda Boone [place] may recalls 09/16/2024 Refill [facility] [place] [address] Eric Montoya MD 09/16/2024 [place] [address] Eric Montoya MD Chronic neck pain with history of cervical spinal surgery 09/06/2024 9:15 AM EST Office Visit [facility] [place] [phone] Eric Montoya MD Essential hypertension (Primary Dx); Allergic rhinitis, unspecified seasonality, unspecified trigger 09/06/2024 Travel 08/19/2024 [place] [phone] Eric Montoya MD Erectile dysfunction, unspecified erectile dysfunction type 08/19/2024 [place] [address] Name, MD Eric Erectile dysfunction, unspecified erectile dysfunction type from Last 3 Months Immunizations Name Administration Dates Next Due Influenza injectable quadriv alent IIV4 with preservative 05/10/2019,04/05/2018,05/11/2017 Influenza, IIV3, injectable 05/21/2015,1 ,06/23/2012,04/05 PPD Test 01/30/2011,12/26/2009 Pneumococcal Polysaccharide PPSV23 05/06/2013 TD (adult), 2 Lf tetanus tox oid, preservative free, adsorbed 05/10/2019 Tdap 04/05/2009 Social History Tobacco Use Types Packs/Day Years Used Date Smoking Tobacco: Never Passive Smoke Exposure: Never Smokeless Tobacco: Never Tobacco Cessation:Counseling Given: Not Answered Alcohol Use Standard Drinks/Week Comments Never 0 [...] Orientation Straight 05/19/2022 10 :23 AM EDT Last Filed Vital Signs Vital Sign Reading Time Taken Comments Blood Pressure 145/88 09/06/2024 9:16 AM EST Pulse 96 09/06/2024 9:16 AM EST Temperature 36.9 ??C (98.5 ??F) 09/06/2024 9:16 AM ES T Respiratory Rate 20 09/06/2024 9:16 AM EST Oxygen Saturation 100% 09/06/2024 9:16 AM EST Inhaled Oxygen Concentration - - Weight 111 kg (245 lb 3.2 oz) 09/06/2024 9:16 AM EST Height 185.4 cm (6' 1 ) 06/08/2024 5:30 PM EST Body Mass Index 32.35 06/08/2024 5:30 PM EST Plan of Treatment Upcoming Encounters Date Type Department Care Team (Late st Contact Info) Description 12/28/2024 11:30 AM EDT Clinical Support [facility] [address] [place] [phone] Andreia Lyles RN 01/11/2025 3:30 PM EDT Office Visit [facility] [address] [place] [phone] Name, MD Eric [address] [place] [phone] Health Maintenance Due Date Last Done Comments CT Colonography 1957 FIT DNA/Cologuard 1957 FIT 1957 FOBT 1957 Sigmoidoscopy 1957 Hepatitis C Screening 1975 Zoster Vaccines (1 of 2) 2007 Dental Oral Exam 09/11/2012 03/10/2012 Dental X-Ray: Bitewings 03/11/2013 03/10/2012 Dental Prophylaxis 07/09/2013 01/06/2013 Pneumococcal Vaccine: 50+ Years (2 of 2 - PCV) 05/06/2014 05/06/2013 Dental X-Ray: Full Mouth 03/11/2015 03/10/2012 RSV Patients and Patients Aged 60 years or older (1 - Risk 60-74 years 1-dose series) 2017 Colonoscopy 04/29/2020 04/29/2017 Colorectal Cancer Screening 04/29/2020 COVID-19 Vaccine ( - season) 2024 07/15/2021, 10/13/2020, 09/13/2020 Influenza Vaccine (#1) 2024 , 04/05/2018, 05/11/2017, Additional history exists Alcohol/Substance Use Screening 02/23/2025 02/24/2024 Depression Screening 02/23/2025 02/24/2024, 02/24/20 24 SDOH Screening 02/23/2025 02/24/2024 Tobacco Screening 08/05/2025 08/05/2024 Lipid Panel 07/21/2028 07/21/2023, 04/0 02/2022, 03/20/2021, Additional history exists DTaP/Tdap/Td Vaccines (3 - Td or Tdap) 05/10/2029 05/10/2019, 04/05/2009 HIB Vaccines Aged Out No longer eligi ble based on patient's age to complete this topic HPV Vaccines Aged Out No longer eligi ble based on patient's age to complete this topic Hepatitis A Vaccines Aged Out No long er eligible based on patient's age to complete this topic Hepatitis B Vaccines Aged Out No long er eligible based on patient's age to complete this topic IPV Vaccines Aged Out No longer eligi ble based on patient's age to complete this topic Meningococcal Vaccine Aged Out No tamiok elizabeth eligible based on patient's age to complete this topic RSV under 20 months Aged Out No longe r eligible based on patient's age to complete this topic Rotavirus Vaccines Aged Out No longer eligible based on patient's age to complete this topic Procedures Procedure Name Priority Date/Time Associated Diagnosis Comments LIPID PANEL, STANDARD Routine 07/21/2023 10:32 AM EST Personal history of malignant carcinoid tumor of rectum Essential hypertension On statin therapy HM COLONOSCOPY Routine 04/29/2017 PROPHYLAXIS - ADULT Routine 01/06/2013 1 2:00 AM EDT INTRAORAL - COMPLETE SERIES OF RADIOGRAPHIC IMAGES Routine 03/10/2012 12:00 AM EDT COMPREHENSIVE ORAL EVALUATION - NEW OR ESTABLISHED PATIENT Routine 03/10/2012 12:00 AM EDT from Last 3 Months or Most Recently Relevant to Health Maintenance Results * (ABNORMAL) Lipid Panel, Standard (07/21/2023 10:32 AM EST) Triglycerides 87 <150 mg/dL [facility] Comment:Desirable Triglyceri de: less than 150 mg/dLBorderline High Triglyceride 150-199 mg/dLHigh Triglyceride: 200-499 mg/dLVery High Triglyceride: greater than or equal to 5OO mg/dL Cholesterol 205(H) <200 mg/dL [facility] Comment:Desirable Cholestero l: less than 200 mg/dLBorderline High Cholesterol: 200-239 mg/dLHigh Cholesterol: greater than 239 mg/dL LDL Cholesterol Calculated 120(H) <100 mg/dL [facility] Comment:Desirable LDL: less than 100 mg/dLNear Optimal/Above Optimal LDL: 110- 129 mg/dLBorderline High LDL: 130-159 mg/dLHigh LDL: 160-189 mg/dLVery High LDL: greater than or equal to 190 mg/dL HDL Cholesterol 68 >40 mg/dL [facility] Comment:Desirable HDL: great er than 40 mg/dL Note: This HDL assay may give artificially low results in patients with liver disease. Blood Venous blood specimen / Unknown 07/21/2023 10:32 AM EST 07/21/2023 10:59 AM EST us Eric Montoya MD LAB BLOOD ORDERABLES Final Resul t [facility] [address] [place] [phone] * (ABNORMAL) Colonoscopy (04/29/2017) Colonoscopy Abnormal(A ) Normal [facility] External Provider HEALTH MAINTENANCE Final Result from Last 3 Months or Most Recently Relevant to Health Maintenance Insurance [facility] STANDARD MEDICARE DENTAL-[facility] MEDICAID STAND ADULT Care Teams Ruby On Rails Software Developer Relationship Specialty Start Date End Date Name, MD Eric [address] [place] [address] PCP - General Family Medicine 09/14/15 Lauren Alexis PharmD [address] [place] [phone] Pharmacist Internal Medicine 04/19/24
--- OUTSIDE RECORDS SUMMARY | 2024-11-16 08:11 | XMS_ITS | Encounter Summary ---
Author Organization [employer] Address [address] [facility] [address]t [place] [address] Care Team Providers Care Level Vial Marker Name Role Phone Name, Eric MUNGUIA Primary Care Provider [phone] Lauren Alexis PharmD Unavailable [phone] Reason for Visit * Reason Comments Med Refill Encounter Details Date Type Department Care Team (Late st Contact Info) Description 07/18/2024 Refill [facility] [address] [place], [place] [phone] Name, MD Eric [address] [place], [place] [phone] Chronic neck pain with history of cervical [...] 11:30 AM EDT Clinical Support [facility] [address] [place] [phone] Andreia Lyles RN 01/11/2025 3:30 PM EDT Office Visit [facility] [address] [place] [phone] Eric Montoya MD [address] [place] [phone] documented as of this encounter Visit Diagnoses Diagnosis Chronic neck pain with history of cervical spinal surgery documented in this encounter Additional Health Concerns Assessment Noted Time PHQ-9 Depression Total Score: 0 02/24/20 24 3:45 PM EDT documented as of this encounter Care Teams Level Vial Marker Relationship Specialty Start Date End Date Eric Montoya MD [address] [place] [phone] PCP - General Family Medicine 09/14/15 Lauren Alexis, Amanda [address] [place] [phone] Pharmacist Internal Medicine 04/19/24 documented as of this encounter
--- OUTSIDE RECORDS SUMMARY | 2024-11-16 08:11 | XMS_ITS | Clinical Summary ---
Author Organization [facility] Address [address] [place] [address] Care Team Providers Care Manager Athletics Name Role Phone Unavailable Primary Care Provider Unavailabl e Social History Tobacco Use Types Packs/Day Years Used Date Smoking Tobacco: Never Assessed Sex and Gender Information Value Date Recorded Sex Assigned at Not on file Gender Identity Not on file Sexual Orientation Not on file Plan of Treatment Not on file [address] [place] [address]
--- OUTSIDE RECORDS SUMMARY | 2024-11-16 08:11 | XMS_ITS | Clinical Summary ---
Author Organization [employer] [facility] Address [address] [place] [address] Care Team Providers Care Belting Inspector Name Role Phone Name, Eric MUNGUIA Primary Care Provider Surgical History Surgery Date Site/Laterality Comments ESOPHAGOGASTRODUODENOSCOPY 08/01/2010 PROCEDURE: ND ESOPHAGOGASTRODUODENOSCOPY TRANSORAL DIAGNOSTIC; COMMENT: Normal OTHER SURGICAL HISTORY 11/2011 PROCEDURE: ---- OTHER ----; COMMENT: anal fistulotomy COLONOSCOPY 08/13/09 PROCEDURE: HISTORICAL COLONOSCOPY; COMMENT: rectal carcinoid; do sigmoidoscopy in one year, and colonoscopy in ten years. FLEXIBLE SIGMOIDOSCOPY 11/21/10 PROCEDURE: ND SIGMOIDOSCOPY FLX DX W/COLLJ SPEC BR/WA IF PFRMD; COMMENT: rectal carcinoid; repeat in one year. FLEXIBLE SIGMOIDOSCOPY 01/13/12 PROCEDURE: ND SIGMOIDOSCOPY FLX DX W/COLLJ SPEC BR/WA IF PFRMD; COMMENT: no carcinoid; repeat in two years OTHER SURGICAL HISTORY 04/25/14 PROCEDURE: ND SIGMOIDOSCOPY FLX W/BIOPSY SINGLE/MULTIPLE; COMMENT: hyperplastic polyp; repeat in 3 yrs OTHER SURGICAL HISTORY 04/29/2017 PROCEDURE: ND SGMDSC FLX DIRED SBMCSL NJX ANY SBST; COMMENT: normal to 30 cm; do full colonoscopy in 3 yrs Medical History Medical History Date Comments Benign carcinoid tumor of re ctum (CMS/HCC V28) 11/21/2010 DX:Benign carcinoid tumor of rectum Cervical spine degeneration 02/12/2010 DX:C ervical spine degeneration DDD (degenerative disc disease), lumbar 01/24/2010 DX:DDD (degenerative disc disease), lumbar GERD (gastroesophageal reflux disease) 04/05/2009 DX:GERD (gastroesophageal reflux disease) Herniated lumbar intervertebral disc 01/24/2010 DX:Herniated lumbar intervertebral disc Historical Medical DX 04/05/2009 DX:HTN History of colon polyps 09/15/2019 DX:Histo ry of colon polyps Depression 09/15/2019 DX:Depression Hypercholesterolemia 04/05/2009 DX:Hypercho lesterolemia Chronic low back pain with sciatica 09/15/2019 DX:Chronic low back pain with sciatica Family History Medical History Relation Name Comments Autoimmune disease Neg Hx Breast cancer Neg Hx Colon cancer Neg Hx Coronary artery disease Neg Hx Diabetes Neg Hx Heart attack Neg Hx Heart failure Neg Hx Hyperlipidemia Neg Hx Hypertension Neg Hx Mental illness Neg Hx Prostate cancer Neg Hx Sleep apnea Neg Hx Thyroid disease Neg Hx Relation Name Status Comments Brother 1 Alive [place] Brother 2 Alive [place] Brother 3 Alive Brother 4 Alive Brother 5 Alive Daughter 1 Alive Daughter 2 Alive Daughter 3 Alive Father stroke Mother [place] Sister 1 Alive Sister 2 Alive Sister 3 Alive Son Alive Social History Tobacco Use Types Packs/Day Years Used Date Smoking Tobacco: Never Smokeless Tobacco: Never Alcohol Use Standard Drinks/Week Comments Yes 0 (1 standard drink = 0.6 oz pur e alcohol) Sex and Gender Information Value Date Recorded Sex Assigned at Not on file Legal Sex Male 5:06 AM EST Gender Identity Not on file Sexual Orientation Not on file Obstetrics History Plan of Treatment Health Maintenance Due Date Last Done Comments Pneumococcal Vaccine: 50+ Years (1 of 1 - PCV) 2007 Zoster Vaccines (1 of 2) 2007 DTaP,Tdap,and Td Vaccines (2 - Td or Tdap) 04/05/2019 04/05/2009 Abdominal Aortic Aneurysm (AAA) Screen 06/28/2022 Cholesterol Screening (Lipid Panel) 06/28/2022 Colorectal Cancer Screening: Colonoscopy 06/28/2022 Depression Screening 06/28/2022 Falls Risk Assessment 06/28/2022 Hepatitis C Screening 06/28/2022 Hypertension/CHF/CAD Annual BMP Blood Test 06/28/2022 Social Influencers of Health Screening 06/28/2022 COVID-19 Vaccine ( season) 2024 Influenza Vaccine (Season Ended) 2025 05/21/2015, 05/06/2013, 06/23/2012, Additional history exists RSV Immunization Adult Patients (1 - 1-dose 75+ series) 01/30/2032 HIB Vaccines Aged Out No longer eligi [...] on patient's age to complete this topic MMR Vaccines Aged Out No longer eligi ble based on patient's age to complete this topic Meningococcal ACWY Vaccine Aged Out N o longer eligible based on patient's age to complete this topic Meningococcal B Vaccine Aged Out No l onger eligible based on patient's age to complete this topic RSV Immunization Patients Under 20 months Aged Out No longer eligible based on patient's age to complete this topic Varicella Vaccines Aged Out No longer eligible based on patient's age to complete this topic Care Teams Belting Inspector Relationship Specialty Start Date End Date Name, MD Eric [address] [place] [address] PCP - General Internal Medicine 04/15/11
--- OUTSIDE RECORDS SUMMARY | 2024-11-16 08:11 | XMS_ITS | Encounter Summary ---
Author Organization [employer] Address [address] [facility] 7t [place] [address] Care Team Providers Care Technical Clerk Name Role Phone Name, Eric MUNGUIA Primary Care Provider [phone] Lauren Alexis PharmD Unavailable Reason for Visit * Reason Onset Date Comments Med Refill 05/18/2023 Encounter Details Date Type Department Care Team (Late st Contact Info) Description 05/18/2023 Telephone [facility] 230 [place], [place] [phone] Name, MD Eric 230 [place], [place] [phone] Med Refill Social History Tobacco Use Types Packs/Day Years Used Date Smoking Tobacco: Never Smokeless Tobacco: Never Alcohol Use Standard Drinks/Week Comments Never 0 (1 standard drink = 0.6 oz pur e alcohol) Depression Answer Date Recorded Patient Health Questionnaire-9 Score 0 12/23/2022 Housing Stability Answer Date Recorded What is your housing situation today? I have sandy johnson 05/06/[address] you li ve. Do you have problems with any of the following? None of the above 05/06/2023 Food Insecurity Answer Date Recorded Within the past 12 months, y ou worried that your food would run out before you got money to buy more: Never True 05/06/2023 Within the past 12 months,th e food you bought just didn't last and you didn't have enough money to get more: Never True Transportation Answer Date Recorded In the past 12 months, has l ack of transportation kept you from medical appts, meetings, work or from getting things needed for daily living? No 05/06/2023 Utilities Answer Date Recorded In the past 12 months, has t he electric, gas, oil or water company threatened to shut off services in your home? No 05/06/2023 Depression Answer Date Recorded Patient Health Questionnaire-2 Score 0 12/23/2022 Sex and Gender Information Value Date Recorded Sex Assigned at Male 05/19/2022 10:23 AM EDT Legal Sex Male 10:23 AM EDT Gender Identity Male 05/19/2022 10:23 AM EDT Sexual Orientation Straight 05/19/2022 10 :23 AM EDT documented as of this encounter Miscellaneous Notes * Telephone Encounter - Natali Rowe LPN - 05/18/2023 11:53 AM EDT Duplicate request. * Telephone Encounter - Kya Baig - 05/18/2023 11:49 AM EDT Tc from requesting med refill on; oxyCODONE (Roxicodone) 10 MG immediate release tablet documented in this encounter Plan of Treatment Upcoming Encounters Date Type Department Care Team (Late st Contact Info) Description 12/28/2024 11:30 AM EDT Clinical Support [facility] [address] [place] [address] Andreia Lyles RN 01/11/2025 3:30 PM EDT Office Visit [facility] [address] [place] [phone] NameEric MD [address] [place] [address] documented as of this encounter Visit Diagnoses Not on filedocumented in this encounter Additional Health Concerns Assessment Noted Time PHQ-9 Depression Total Score: 0 12/24/19 23 4:02 PM EDT documented as of this encounter Care Teams Technical Clerk Relationship Specialty Start Date End Date NameEric MD [address] [place] [address] PCP - General Family Medicine 09/14/15 Lauren Alxeis, Amanda [address] [place] [address] Pharmacist Internal Medicine 04/19/24 documented as of this encounter
--- OUTSIDE RECORDS SUMMARY | 2024-11-16 08:11 | XMS_ITS | Encounter Summary ---
Author Organization [employer] Address [address] [facility] 7t [place] [address] Care Team Providers Care Electromagnet Crane Operator Name Role Phone Name, Eric MUNGUIA Primary Care Provider [phone] Lauren Alexis PharmD Unavailable [phone] Reason for Visit * Reason Comments Med Refill Encounter Details Date Type Department Care Team (Late st Contact Info) Description 08/03/2024 Refill [facility] 230 [place], [place] [phone] Name, MD Eric 230 [place], [place] [phone] Unspecified asthma with (acute) exacerbation Social History [...] t he electric, gas, oil or water [employer] threatened to shut off services in your [...] AM EDT Clinical Support [facility] [address] [place] [address] Andreia Lyles RN 01/11/2025 3:30 PM EDT Office Visit [facility] [address] [place] [address] Eric Montoya MD [address] [place] [address] documented as of this encounter Visit Diagnoses Diagnosis Unspecified asthma with (acute) exacerbation documented in this encounter Additional Health Concerns Assessment Noted Time PHQ-9 Depression Total Score: 0 02/24/20 24 3:45 PM EDT documented as of this encounter Care Teams Electromagnet Crane Operator Relationship Specialty Start Date End Date Eric Montoya MD [address] [place] [address] PCP - General Family Medicine 09/14/15 Lauren Alexis, Amanda [address] [place] [address] Pharmacist Internal Medicine 04/19/24 documented as of this encounter
--- OUTSIDE RECORDS SUMMARY | 2024-11-16 08:11 | XMS_ITS | Encounter Summary ---
Author Organization [employer] Address [address] [facility] 7t [place] [address] Care Team Providers Care Machine Castings Plasterer Name Role Phone Name, Eric MUNGUIA Primary Care Provider [phone] Lauren Alexis PharmD Unavailable Reason for Visit * Reason Onset Date Comments Med Refill 05/26/2023 Encounter Details Date Type Department Care Team (Late st Contact Info) Description 05/26/2023 Refill [facility] 230 [place], [place] [phone] Name, MD Eric 230 [place], [place] [phone] Chronic neck pain with history of cervical [...] is your housing situation today? I have sandykirsty johnson 05/06/[address] you [...] Description 12/28/2024 11:30 AM EDT Clinical Support [address] [address] Andreia Lyles RN 01/11/2025 3:30 PM EDT Office Visit [address] [address] Name, MD Eric [address] [place] [address] documented as of this encounter Visit Diagnoses Diagnosis Chronic neck pain with history of cervical spinal surgery Essential hypertension Unspecified essential hypertension documented in this encounter Additional Health Concerns Assessment Noted Time PHQ-9 Depression Total Score: 0 12/24/19 23 4:02 PM EDT documented as of this encounter Care Teams Machine Castings Plasterer Relationship Specialty Start Date End Date Name, MD Eric [address] [place] [address] PCP - General Family Medicine 09/14/15 Lauren Alexis PharmD [address] [place] [address] Pharmacist Internal Medicine 04/19/24 documented as of this encounter
--- OUTSIDE RECORDS SUMMARY | 2024-11-16 08:11 | XMS_ITS | Encounter Summary ---
Author Organization [employer] Address [address] [place] [address] 7 [place] [address] Care Team Providers Care Clinical Aide Name Role Phone Name, Eric MUNGUIA Primary Care Provider Lauren Alexis PharmD Unavailable [phone] Reason for Visit * Reason Comments Med Refill Encounter Details Date Type Department Care Team (Late st Contact Info) Description 04/17/2023 Refill [facility] [address] [place] [address] [phone] Name, MD Eric 230 [place], [place] [phone] Erectile dysfunction, unspecified erectile dysfunction type; Chronic neck pain with history of cervical [...] Description 12/28/2024 11:30 AM EDT Clinical Support [facility] [address] [place] [address] Andreia Lyles RN 01/11/2025 3:30 PM EDT Office Visit [facility] 230 [place] [address] Name, MD Eric [address] [place] [address] documented as of this encounter Visit Diagnoses Diagnosis Erectile dysfunction, unspecified erectile dysfunction type Chronic neck pain with history of cervical spinal surgery documented in this encounter Additional Health Concerns Assessment Noted Time PHQ-9 Depression Total Score: 0 12/24/19 23 4:02 PM EDT documented as of this encounter Care Teams Clinical Aide Relationship Specialty Start Date End Date Name, MD Eric [address] [place] [address] PCP - General Family Medicine 09/14/15 Lauren Alexis PharmD [address] [place] [address] Pharmacist Internal Medicine 04/19/24 documented as of this encounter
== END ==
LOC: HO.CARD 08:04
PROVIDERS: PCP Internal Medicine Geriatric Medicine; Visit Provider Internal Medicine Cardiovascular Disease
DX: Z13.89 Encounter for screening for other disorder (principal)

== ENCOUNTER → 2024-11-25 09:58 | Outpatient (REF) | payer MEDICARE, MEDICAID, SELFPAY ==
--- OUTSIDE RECORDS SUMMARY | 2024-11-25 10:28 | XMS_ITS | Encounter Summary ---
Author Organization [employer] Address 75 [facility] 7t [place] [address] Care Team Providers Care Diet Counselor Name Role Phone Name, Eric MUNGUIA Primary Care Provider [phone] Lauren Alexis PharmD Unavailable [phone] Reason for Visit * Reason Onset Date Comments Med Refill 03/17/2024 Encounter Details Date Type Department Care Team (Late st Contact Info) Description 03/17/2024 Refill [facility] 230 [place], [place] [phone] Name, MD Eric 230 [place], [place] [phone] Chronic neck pain with history of cervical [...] Description 12/28/2024 11:30 AM EDT Clinical Support [facility] [address] [place] [address] Andreia Lyles RN 01/11/2025 3:30 PM EDT Office Visit [facility] [address] [place] [address] Eric Montoya MD [address] [place] [address] documented as of this encounter Visit Diagnoses Diagnosis Chronic neck pain with history of cervical spinal surgery Essential hypertension Unspecified essential hypertension documented in this encounter Additional Health Concerns Assessment Noted Time PHQ-9 Depression Total Score: 0 02/24/20 24 3:45 PM EDT documented as of this encounter Care Teams Diet Counselor Relationship Specialty Start Date End Date Eric Montoya MD [address] [place] [address] PCP - General Family Medicine 09/14/15 Lauren Alexis, Amanda [address] [place] [address] Pharmacist Internal Medicine 04/19/24 documented as of this encounter
--- OUTSIDE RECORDS SUMMARY | 2024-11-25 10:28 | XMS_ITS | Encounter Summary ---
Author Organization [employer] Address [address] [place] [address] 7t [place] [address] Care Team Providers Care Automotive Wholesale Parts Advisor Name Role Phone Name, Eric MUNGUIA Primary Care Provider [phone] Lauren Alexis PharmD Unavailable [phone] Reason for Visit * Reason Onset Date Comments Med Refill 08/17/2024 Encounter Details Date Type Department Care Team (Late st Contact Info) Description 08/17/2024 Refill [facility] 230 [place], [place] [phone] Name, MD Eric 230 [place], [place] [phone] Unspecified asthma with (acute) exacerbation Social History [...] Description 12/28/2024 11:30 AM EDT Clinical Support [facility] [address] [place] [address] Andreia Lyles RN 01/11/2025 3:30 PM EDT Office Visit [facility] [address] [place] [address] Eric Montoya MD [address] [place] [address] documented as of this encounter Visit Diagnoses Diagnosis Unspecified asthma with (acute) exacerbation documented in this encounter Additional Health Concerns Assessment Noted Time PHQ-9 Depression Total Score: 0 02/24/20 24 3:45 PM EDT documented as of this encounter Care Teams Automotive Wholesale Parts Advisor Relationship Specialty Start Date End Date Eric Montoya MD [address] [place] [address] PCP - General Family Medicine 09/14/15 Lauren Alexis, Amanda [address] [place] [address] Pharmacist Internal Medicine 04/19/24 documented as of this encounter
--- OUTSIDE RECORDS SUMMARY | 2024-11-25 10:28 | XMS_ITS | Encounter Summary ---
Author Organization [employer] Address [address] [place] [address] 7 [place] [address] Care Team Providers Care Machine Maintenance Technician Name Role Phone Name, Eric MUNGUIA Primary Care Provider [phone] Lauren Alexis PharmD Unavailable Reason for Visit * Reason Onset Date Comments Appointment Request 01/27/2023 Encounter Details Date Type Department Care Team (Late st Contact Info) Description 01/27/2023 Telephone [facility] 230 [place], [place] [phone] Name, MD Eric 230 [place], [place] [phone] Appointment Request Social History Tobacco Use Types [...] Miscellaneous Notes * Telephone Encounter - Niki Nunez - 01/27/2023 1:35 PM EDT Tc from documented in this encounter Plan of Treatment Upcoming Encounters Date Type Department Care Team (Late st Contact Info) Description 12/28/2024 11:30 AM EDT Clinical Support [address] [address] Andreia Lyles, RN 01/11/2025 3:30 PM EDT Office Visit [address] [address] Name, MD Eric [address] [place] [address] documented as of this encounter Visit Diagnoses Not on filedocumented in this encounter Additional Health Concerns Assessment Noted Time PHQ-9 Depression Total Score: 0 12/24/19 23 4:02 PM EDT documented as of this encounter Care Teams Machine Maintenance Technician Relationship Specialty Start Date End Date Name, MD Eric [address] [place] [address] PCP - General Family Medicine 09/14/15 Lauren Alexis, AnnD [address] [place] [address] Pharmacist Internal Medicine 04/19/24 documented as of this encounter
--- OUTSIDE RECORDS SUMMARY | 2024-11-25 10:28 | XMS_ITS | Encounter Summary ---
Author Organization [employer] Address [address] [place] [address] 7t [place] [address] Care Team Providers Care Security Threat Analyst Name Role Phone Name, Eric MUNGUIA Primary Care Provider [phone] Lauren Alexis PharmD Unavailable [phone] Reason for Visit * Reason Onset Date Comments Med Refill 03/17/2024 Encounter Details Date Type Department Care Team (Late st Contact Info) Description 03/17/2024 Refill [facility] 230 [place], [place] [phone] Name, MD Eric 230 [place], [place] [phone] Social History Tobacco Use Types Packs/Day Years [...] Description 12/28/2024 11:30 AM EDT Clinical Support [facility] [address] [place] [address] Andreia Lyles RN 01/11/2025 3:30 PM EDT Office Visit [facility] [address] [place] [address] NameEric MD [address] [place] [address] documented as of this encounter Visit Diagnoses Not on filedocumented in this encounter Additional Health Concerns Assessment Noted Time PHQ-9 Depression Total Score: 0 02/24/20 24 3:45 PM EDT documented as of this encounter Care Teams Security Threat Analyst Relationship Specialty Start Date End Date Eric Montoya MD [address] [place] [address] PCP - General Family Medicine 09/14/15 Lauren Alexis, AnnD 230 [place] [address] Pharmacist Internal Medicine 04/19/24 documented as of this encounter
--- OUTSIDE RECORDS SUMMARY | 2024-11-25 10:28 | XMS_ITS | Encounter Summary ---
Author Organization [employer] Address [address] [place] [address] 7t [place] [address] Care Team Providers Care Mr Teacher Name Role Phone Name, Eric MUNGUIA Primary Care Provider [phone] Lauren Alexis PharmD Unavailable [phone] Reason for Visit * Reason Onset Date Comments Med Refill 03/17/2024 Encounter Details Date Type Department Care Team (Late st Contact Info) Description 03/17/2024 Refill [facility] 230 [place], [place] [phone] Name, MD Eric 230 [place], [place] [phone] Social History Tobacco Use Types Packs/Day Years [...] [facility] [address] [place] [address] Andreia Lyles RN 01/11/2025 3:30 PM EDT Office Visit [facility] [address] [place] [address] NameEric MD [address] [place] [address] documented as of this encounter Visit Diagnoses Not on filedocumented in this encounter Additional Health Concerns Assessment Noted Time PHQ-9 Depression Total Score: 0 02/24/20 24 3:45 PM EDT documented as of this encounter Care Teams Mr Teacher Relationship Specialty Start Date End Date Eric Montoya MD [address] [place] [address] PCP - General Family Medicine 09/14/15 Lauren Alexis, AnnD 230 [place] [address] Pharmacist Internal Medicine 04/19/24 documented as of this encounter
--- OUTSIDE RECORDS SUMMARY | 2024-11-25 10:28 | XMS_ITS | Encounter Summary ---
Author Organization [employer] Address [address] [place] [address] 7t [place] [address] Care Team Providers Care Delinquency Prevention Social Worker Name Role Phone Name, Eric MUNGUIA Primary Care Provider [phone] Lauren Alexis PharmD Unavailable [phone] Reason for Visit * Reason Comments Med Refill Encounter Details Date Type Department Care Team (Late st Contact Info) Description 03/17/2024 Refill [facility] 230 [place], [place] [phone] Name, MD Eric 230 [place], [place] [phone] Chronic neck pain with history of cervical [...] Description 12/28/2024 11:30 AM EDT Clinical Support [facility] [address] [place] [address] Andreia Lyles RN 01/11/2025 3:30 PM EDT Office Visit [facility] [address] [place] [address] Eric Montoya MD [address] [place] [address] documented as of this encounter Visit Diagnoses Diagnosis Chronic neck pain with history of cervical spinal surgery documented in this encounter Additional Health Concerns Assessment Noted Time PHQ-9 Depression Total Score: 0 02/24/20 24 3:45 PM EDT documented as of this encounter Care Teams Delinquency Prevention Social Worker Relationship Specialty Start Date End Date Eric Montoya MD [address] [place] [address] PCP - General Family Medicine 2/26/16 Lauren Alexis, AnnD [address] [place] [address] Pharmacist Internal Medicine 04/19/24 documented as of this encounter
--- OUTSIDE RECORDS SUMMARY | 2024-11-25 10:28 | XMS_ITS | Encounter Summary ---
Author Organization [employer] Address [address] [place] [address] 7t [place] [address] Care Team Providers Care Undercollar Maker Name Role Phone Name, Eric MUNGUIA Primary Care Provider [phone] Lauren Alexis PharmD Unavailable [phone] Reason for Visit * Reason Onset Date Comments Med Refill 03/17/2024 Encounter Details Date Type Department Care Team (Late st Contact Info) Description 03/17/2024 Refill [facility] 230 [place], [place] [phone] Name, MD Eric 230 [place], [place] [phone] Social History Tobacco Use Types Packs/Day Years [...] Clinical Support [facility] [address] [place] [address] Andreia Lyles RN 01/11/2025 3:30 PM EDT Office Visit [facility] [address] [place] [address] NameEric MD [address] [place] [address] documented as of this encounter Visit Diagnoses Not on filedocumented in this encounter Additional Health Concerns Assessment Noted Time PHQ-9 Depression Total Score: 0 02/24/20 24 3:45 PM EDT documented as of this encounter Care Teams Undercollar Maker Relationship Specialty Start Date End Date Eric Montoya MD [address] [place] [address] PCP - General Family Medicine 09/14/15 Lauren Alexis, AnnD 230 [place] [address] Pharmacist Internal Medicine 04/19/24 documented as of this encounter
--- OUTSIDE RECORDS SUMMARY | 2024-11-25 10:28 | XMS_ITS | Encounter Summary ---
Author Organization [employer] Address [address] [place] [address] 7t [place] [address] Care Team Providers Care Kennel Hand Name Role Phone Name, Eric MUNGUIA Primary Care Provider [phone] Lauren Alexis PharmD Unavailable [phone] Reason for Visit * Reason Onset Date Comments Med Refill 01/23/2023 Encounter Details Date Type Department Care Team (Late st Contact Info) Description 01/23/2023 Refill [facility] [address] [place] [address] Yudelka Kaiser MD 230 [place], [place] [phone] Essential hypertension Social History Tobacco Use Types [...] Description 12/28/2024 11:30 AM EDT Clinical Support [facility] 230 [place] [address] Andreia Lyles, BUSTER 01/11/2025 3:30 PM EDT Office Visit [facility] 230 [place] [address] Name, MD Eric 230 [place] [address] documented as of this encounter Visit Diagnoses Diagnosis Essential hypertension Unspecified essential hypertension documented in this encounter Additional Health Concerns Assessment Noted Time PHQ-9 Depression Total Score: 0 12/24/19 23 4:02 PM EDT documented as of this encounter Care Teams Kennel Hand Relationship Specialty Start Date End Date Name, [place] [address] PCP - General Family Medicine 09/14/15 Lauren Alexis PharmD [address] [place] [address] Pharmacist Internal Medicine 04/19/24 documented as of this encounter
--- OUTSIDE RECORDS SUMMARY | 2024-11-25 10:28 | XMS_ITS | Encounter Summary ---
Author Organization [employer] Address [address] [place] [address] [address] [address] Care Team Providers Care Wire Brusher Name Role Phone Name, Eric MUNGUIA Primary Care Provider [phone] Lauren Alexis PharmD Unavailable [phone] Reason for Visit * Reason Onset Date Comments Med Refill 03/17/2024 Encounter Details Date Type Department Care Team (Late st Contact Info) Description 03/17/2024 Refill [facility] 230 [place], [place] [phone] Name, MD Eric 230 [place], [place] [phone] Social History Tobacco Use Types Packs/Day Years [...] 11:30 AM EDT Clinical Support [facility] [address] [place] [address] Andreia Lyles RN 01/11/2025 3:30 PM EDT Office Visit [facility] [address] [place] [address] NameEric MD [address] [place] [address] documented as of this encounter Visit Diagnoses Not on filedocumented in this encounter Additional Health Concerns Assessment Noted Time PHQ-9 Depression Total Score: 0 02/24/20 24 3:45 PM EDT documented as of this encounter Care Teams Wire Brusher Relationship Specialty Start Date End Date Eric Montoya MD [address] [place] [address] PCP - General Family Medicine 09/14/15 Lauren Alexis, AnnD 230 [place] [address] Pharmacist Internal Medicine 04/19/24 documented as of this encounter
--- OUTSIDE RECORDS SUMMARY | 2024-11-25 10:29 | XMS_ITS | Clinical Summary ---
Author Organization [facility] Address [address] [place] [address] Care Team Providers Care Auto Body Estimator Name Role Phone Unavailable Primary Care Provider Unavailabl e Social History Tobacco Use Types Packs/Day Years Used Date Smoking Tobacco: Never Assessed Sex and Gender Information Value Date Recorded Sex Assigned at Not on file Gender Identity Not on file Sexual Orientation Not on file Plan of Treatment Not on file [facility] [place] [address]
--- OUTSIDE RECORDS SUMMARY | 2024-11-25 10:29 | XMS_ITS | Encounter Summary ---
Author Organization [employer] Address [address] [place] [address] 7t [place] [address] Care Team Providers Care Cardiology Consultants Name Role Phone Name, Eric MUNGUIA Primary Care Provider [phone] Lauren Alexis PharmD Unavailable [phone] Reason for Visit * Reason Onset Date Comments Med Refill 06/17/2024 Encounter Details Date Type Department Care Team (Late st Contact Info) Description 06/17/2024 Refill [facility] MEDICINE [address] [place], [place] [phone] Name, MD Eric [address] [place], [place] [phone] Erectile dysfunction, unspecified erectile dysfunction type Social [...] Description 12/28/2024 11:30 AM EDT Clinical Support [facility] MEDICINE [address] [place] [address] 27708 Andreia Lyles RN 01/11/2025 3:30 PM EDT Office Visit [facility] MEDICINE [address] [place] [address] 400[address] Eric Montoya MD [address] [place] [address] documented as of this encounter Visit Diagnoses Diagnosis Erectile dysfunction, unspecified erectile dysfunction type documented in this encounter Additional Health Concerns Assessment Noted Time PHQ-9 Depression Total Score: 0 02/24/20 24 3:45 PM EDT documented as of this encounter Care Teams Cardiology Consultants Relationship Specialty Start Date End Date Eric Montoya MD [address] [place] [address] 24733 PCP - General Family Medicine 09/14/15 Lauren Alexis, Amanda [address] [place] [address] 20267 Pharmacist Internal Medicine 04/19/24 documented as of this encounter
--- OUTSIDE RECORDS SUMMARY | 2024-11-25 10:29 | XMS_ITS | Encounter Summary ---
Author Organization [employer] Address [address] [place] [address] 7t [place] [address] Care Team Providers Care Knit Goods Washer Name Role Phone Name, Eric MUNGUIA Primary Care Provider [phone] Lauren Alexis PharmD Unavailable [phone] Reason for Visit * Reason Onset Date Comments Med Refill 05/18/2024 Encounter Details Date Type Department Care Team (Late st Contact Info) Description 05/18/2024 Refill [facility] MEDICINE 230 [place], [place] [phone] Name, MD Eric 230 [place], [place] [phone] Erectile dysfunction, unspecified erectile dysfunction type Social [...] EDT Clinical Support [facility] MEDICINE [address] [place] [address] 34673 Andreia Lyles RN 01/11/2025 3:30 PM EDT Office Visit [facility] MEDICINE [address] [place] [address] 31142 Eric Montoya MD [address] [place] [address] 11850 documented as of this encounter Visit Diagnoses Diagnosis Erectile dysfunction, unspecified erectile dysfunction type documented in this encounter Additional Health Concerns Assessment Noted Time PHQ-9 Depression Total Score: 0 02/24/20 24 3:45 PM EDT documented as of this encounter Care Teams Knit Goods Washer Relationship Specialty Start Date End Date Eric Montoya MD [address] [place] [address] 32776 PCP - General Family Medicine 09/14/15 Lauren Alexis, AnnD [address] [place] [address] 57581 Pharmacist Internal Medicine 04/19/24 documented as of this encounter
--- OUTSIDE RECORDS SUMMARY | 2024-11-25 10:29 | XMS_ITS | Encounter Summary ---
Author Organization [employer] Address [address] [facility] 7t [place] [address] Care Team Providers Care Paving Inspector Name Role Phone Name, Eric MUNGUIA Primary Care Provider Lauren Alexis PharmD Unavailable [phone] Reason for Visit * Reason Onset Date Comments Med Refill 04/15/2024 Encounter Details Date Type Department Care Team (Late st Contact Info) Description 04/15/2024 Refill [facility] MEDICINE 230 [place], [place] [phone] Name, MD Eric 230 [place], [place] [phone] Essential hypertension; Chronic neck pain with history [...] Clinical Support [facility] MEDICINE [address] [place] [address] 86997 Andreia Lyles RN 01/11/2025 3:30 PM EDT Office Visit [facility] MEDICINE [address] [place] [address] 15032 Eric Montoya MD [address] [place] [address] 46447 documented as of this encounter Visit Diagnoses Diagnosis Essential hypertension Unspecified essential hypertension Chronic neck pain with history of cervical spinal surgery documented in this encounter Additional Health Concerns Assessment Noted Time PHQ-9 Depression Total Score: 0 02/24/20 24 3:45 PM EDT documented as of this encounter Care Teams Paving Inspector Relationship Specialty Start Date End Date Eric Montoya MD [address] [place] [address] [phone] PCP - General Family Medicine 09/14/15 Lauren Alexis, Amanda [address] [place] [address] [phone] Pharmacist Internal Medicine 04/19/24 documented as of this encounter
--- OUTSIDE RECORDS SUMMARY | 2024-11-25 10:29 | XMS_ITS | Encounter Summary ---
Author Organization [employer] Address [address] [place] [address] 7t [place] [address] Care Team Providers Care Dock Operator Name Role Phone Name, Eric MUNGUIA Primary Care Provider [phone] Lauren Alexis PharmD Unavailable [phone] Reason for Visit * Reason Comments Med Refill Encounter Details Date Type Department Care Team ([facility] st Contact Info) Description 08/03/[address] [facility] MEDICINE 230 [place], [place] [phone] Name, MD Eric 230 [place], [place] [phone] Unspecified asthma with (acute) exacerbation Social History [...] 12/28/2024 11:30 AM EDT Clinical Support [facility] MEDICINE [address] [place] [address] 02144 Andreia Lyles RN 01/11/2025 3:30 PM EDT Office Visit [facility] MEDICINE [address] [place] [address] Eric Montoya MD [address] [place] [address] 61490 documented as of this encounter Visit Diagnoses Diagnosis Unspecified asthma with (acute) exacerbation documented in this encounter Additional Health Concerns Assessment Noted Time PHQ-9 Depression Total Score: 0 02/24/20 24 3:45 PM EDT documented as of this encounter Care Teams Dock Operator Relationship Specialty Start Date End Date Eric Montoya MD [address] [place] [address] 72365 PCP - General Family Medicine 09/14/15 Lauren Alexis, Amanda [address] [place] [address] 03283 Pharmacist Internal Medicine 04/19/24 documented as of this encounter
--- OUTSIDE RECORDS SUMMARY | 2024-11-25 10:29 | XMS_ITS | Encounter Summary ---
Author Organization [employer] Address [address] [place] [address] 7t [place] [address] Care Team Providers Care Mission Coordinator Name Role Phone Name, Eric MUNGUIA Primary Care Provider [phone] Lauren Alexis PharmD Unavailable [phone] Reason for Visit * Reason Onset Date Comments Med Refill 08/19/2024 Encounter Details Date Type Department Care Team (Late st Contact Info) Description 08/19/2024 Refill [facility] MEDICINE 230 [place], [place] [phone] Name, MD Eric 230 [place], [place] [phone] Erectile dysfunction, unspecified erectile dysfunction type Social [...] note were not included. Triage call with [place] [id number],[place]. Regarding Pt portal message below. Pt reports wearing a heart monitor and last night had to remove it due to discomfort. Skin under monitor was raw and painful. Pt is advised to call the facility/MD where heart monitor was placed to notify. Pt agrees. Pt is requesting an apt with PCP as advised from child care giver. ASK apt with Dr. Montoya 09/06/24 at [...] week - You become worse [facility] Medicine Clinical Support (supporting Eric Montoya MD)1 [...] Description 12/28/2024 11:30 AM EDT Clinical Support [address] [address] Andreia Lyles RN 01/11/2025 3:30 PM EDT Office Visit [address] [address] [place], MD Eric [address] [place] [address] documented as of this encounter Visit Diagnoses Diagnosis Erectile dysfunction, unspecified erectile dysfunction type documented in this encounter Additional Health Concerns Assessment Noted Time PHQ-9 Depression Total Score: 0 02/24/20 3:45 PM EDT documented as of this encounter Care Teams Mission Coordinator Relationship Specialty Start Date End Date Eric Montoya MD [address] [place] [address] 26748 PCP - General Family Medicine 09/14/15 Lauren Alexis PharmD [address] [place] [address] 42743 Pharmacist Internal Medicine 04/19/24 documented as of this encounter
--- OUTSIDE RECORDS SUMMARY | 2024-11-25 10:29 | XMS_ITS | Clinical Summary ---
Author Organization [employer] [facility] it[facility] Address [address] [place] [address] Care Team Providers Care Bilingual Receptionist Name Role Phone Name, Eric MUNGUIA Primary Care Provider [phone] Surgical History Surgery Date Site/Laterality Comments ESOPHAGOGASTRODUODENOSCOPY 08/01/2010 PROCEDURE: WI ESOPHAGOGASTRODUODENOSCOPY TRANSORAL DIAGNOSTIC; COMMENT: Normal OTHER SURGICAL HISTORY 11/2011 PROCEDURE: ---- OTHER ----; COMMENT: anal fistulotomy COLONOSCOPY 08/13/09 PROCEDURE: HISTORICAL COLONOSCOPY; COMMENT: rectal carcinoid; do sigmoidoscopy in one year, and colonoscopy in ten years. FLEXIBLE SIGMOIDOSCOPY 11/21/10 PROCEDURE: WI SIGMOIDOSCOPY FLX DX W/COLLJ SPEC BR/WA IF PFRMD; COMMENT: rectal carcinoid; repeat in one year. FLEXIBLE SIGMOIDOSCOPY 01/13/12 PROCEDURE: WI SIGMOIDOSCOPY FLX DX W/COLLJ SPEC BR/WA IF PFRMD; COMMENT: no carcinoid; repeat in two years OTHER SURGICAL HISTORY 04/25/14 PROCEDURE: WI SIGMOIDOSCOPY FLX W/BIOPSY SINGLE/MULTIPLE; COMMENT: hyperplastic polyp; repeat in 3 yrs OTHER SURGICAL HISTORY 04/29/2017 PROCEDURE: WI SGMDSC FLX DIRED SBMCSL NJX ANY SBST; [...] Relation Name Status Comments Brother 1 Alive [place] Brother 2 Alive [place] Brother 3 Alive Brother 4 Alive Brother 5 Alive Daughter 1 Alive Daughter 2 Alive Daughter 3 Alive Father stroke Mother DE Sister 1 Alive Sister 2 Alive Sister [...] age to complete this topic Care Teams Bilingual Receptionist Relationship Specialty Start Date End Date Name, MD Eric [address] [place] [address] PCP - General Internal Medicine 04/15/11
--- OUTSIDE RECORDS SUMMARY | 2024-11-25 10:29 | XMS_ITS | Encounter Summary ---
Author Organization [employer] Address [address] [facility] 7t [place] [address] Care Team Providers Care Bread Distributor Name Role Phone Name, Eric MUNGUIA Primary Care Provider [phone] Lauren Alexis PharmD Unavailable [phone] Reason for Visit * Reason Onset Date Comments Med Refill 08/17/2024 Encounter Details Date Type Department Care Team (Late st Contact Info) Description 08/17/2024 Refill [facility] MEDICINE 230 [place], [place] [phone] Name, MD Eric 230 [place], [place] [phone] Chronic neck pain with history of cervical [...] 11:30 AM EDT Clinical Support [facility] MEDICINE [address] [place] [address] 15946 Andreia Lyles RN 01/11/2025 3:30 PM EDT Office Visit [facility] MEDICINE [address] [place] [address] 33380 Eric Montoya MD [address] [place] [address] 40211 documented as of this encounter Visit Diagnoses Diagnosis Chronic neck pain with history of cervical spinal surgery documented in this encounter Additional Health Concerns Assessment Noted Time PHQ-9 Depression Total Score: 0 02/24/20 24 3:45 PM EDT documented as of this encounter Care Teams Bread Distributor Relationship Specialty Start Date End Date Eric Montoya MD [address] [place] [address] 31209 PCP - General Family Medicine 09/14/15 Lauren Alexis, Amanda [address] [place] [address] 52749 Pharmacist Internal Medicine 04/19/24 documented as of this encounter
--- OUTSIDE RECORDS SUMMARY | 2024-11-25 10:29 | XMS_ITS | Encounter Summary ---
Author Organization [employer] Address [address] [place] [address] 287[address] Care Team Providers Care Media Relations Director Name Role Phone Name, Eric MUNGUIA Primary Care Provider [phone] Lauren Alexis PharmD Unavailable Encounter Details Date Type Department Care Team (Late Contact Info) Description 12/12/2022 [facility] [employer] Information Management 230 [place], [place] [phone] Name, MD Eric 230 [place], [place] [phone] Social History Tobacco Use Types Packs/Day Years [...] Description 12/28/2024 11:30 AM EDT Clinical Support [facility] MEDICINE 230 [place], [place] [phone] Andreia Lyles RN 01/11/2025 3:30 PM EDT Office Visit [facility] MEDICINE [address] [place] [address] Name, MD Eric [address] [place] [address] documented as of this encounter Visit Diagnoses Not on filedocumented in this encounter Care Teams Media Relations Director Relationship Specialty Start Date End Date Name, MD Eric [address] [place] [phone] PCP - General Family Medicine 09/14/15 Lauren Alexis PharmD [address] [place] [address] 54492 Pharmacist Internal Medicine 04/19/24 documented as of this encounter
--- OUTSIDE RECORDS SUMMARY | 2024-11-25 10:29 | XMS_ITS | Encounter Summary ---
Author Organization [employer] Address [address] [place] [address] 7t [place] [address] Care Team Providers Care Weatherization Installer Name Role Phone Name, Eric MUNGUIA Primary Care Provider [phone] Lauren Alexis PharmD Unavailable [phone] Reason for Visit * Reason Comments Med Refill Encounter Details Date Type Department Care Team (Late st Contact Info) Description 07/18/[address] [facility] MEDICINE 230 [place], [place] [phone] Name, MD Eric 230 [place], [place] [phone] Chronic neck pain with history of cervical [...] 11:30 AM EDT Clinical Support [facility] MEDICINE [address] [place] [address] 78398 Andreia Lyles RN 01/11/2025 3:30 PM EDT Office Visit [facility] MEDICINE [address] [place] [address] 94[address] Eric Montoya MD [address] [place] [address] 97791 documented as of this encounter Visit Diagnoses Diagnosis Chronic neck pain with history of cervical spinal surgery documented in this encounter Additional Health Concerns Assessment Noted Time PHQ-9 Depression Total Score: 0 02/24/20 24 3:45 PM EDT documented as of this encounter Care Teams Weatherization Installer Relationship Specialty Start Date End Date Eric Montoya MD [address] [place] [address] 59970 PCP - General Family Medicine 09/14/15 Lauren Alexis, AnnD [address] [place] [address] [phone] Pharmacist Internal Medicine 04/19/24 documented as of this encounter
--- OUTSIDE RECORDS SUMMARY | 2024-11-25 10:29 | XMS_ITS | Clinical Summary ---
Author Organization [employer] Address [address] [facility] 7t [place] [address] Care Team Providers Care Energy Conservation Engineer Name Role Phone Name, Eric MUNGUIA Primary Care Provider [phone] Lauren Alexis PharmD Unavailable [phone] Allergies Active Allergy Reactions Criticality Noted Date Comments Morphine Nausea Only 01/06/2013 Severe nausea vomiting Other reaction(s): by mouth-dizzy Medications EPINEPHrine (Epipen) 0.3 MG/0.3ML injection syringe inject 0.3 milliliter by intramuscular route once as needed for anaphylaxis Active Refresh Optive 0.5-0.9 % solution PLACE 1 DROP IN EACH EYE FOUR TIMES DAILY 024 Active naloxone (Narcan) 4 mg/0.1 mL nasal sprayIndication s:Chronic neck pain with history of cervical spinal surgery Administer 1 spray (4 mg) into affected nostril(s) if needed for opioid reversal. Use 1 full spray (0.1 mL) by intranasal route. Repeat dose in alternating nostrils every 2-3 minutes, as needed 2 each 024 2024 Active hydroCHLOROthia zide (HYDRODiuril) 50 MG tabletIndicatio ns:Essential hypertension Take 1 tablet (50 mg) by mouth Once per day. 90 tablet 1 024 Active amLODIPine-vals shanna (Exforge) 10-320 MG tabletIndicatio ns:Essential hypertension Take 1 tablet by mouth Once per day. 90 tablet 1 024 Active Ventolin HFA 108 (90 Base) MCG/ACT inhaler Inhale 2 puffs Every 4-6 hours as needed for shortness of breath or wheezing. 18 g 11 Active fluticasone furoate (Arnuity Ellipta) 200 MCG/ACT inhaler Inhale 1 puff Once per day. Rinse mouth with water after use to reduce aftertaste and incidence of candidiasis. Do not swallow. 1 each 11 024 2024 Active omeprazole (PriLOSEC) [address] capsule TAKE 1 CAPSULE BY MOUTH EVERY DAY BEFORE A MEAL 90 capsule 3 Active polyethylene glycol, PEG, 3350 (GaviLAX) 17 GM/SCOOP powder TAKE 17 GM MIXED IN 8 OUNCES OF WATER, COFFEE OR TEA ONCE DAILY 510 g 6 Active azelastine (Optivar) 0.05 % ophthalmic solution PLACE 1 DROP IN EACH EYE TWICE DAILY 6 mL 2 Active Emollient (CeraVe Moisturizing) cream APPLY TO THE AFFECTED AREA(S) EVERY DAY 024 Active acetaminophen (Tylenol) 325 MG tabletIndicatio ns:Chronic neck pain with history of cervical spinal surgery TAKE 2 TABLETS BY MOUTH EVERY 8 HOURS NEEDED FOR PAIN 90 tablet 2 025 Active aspirin 81 MG chewable tabletIndicatio ns:Chest pain, unspecified type CHEW 1 TABLET BY MOUTH EVERY DAY 90 tablet 025 Active naproxen (Naprosyn) 500 MG tabletIndicatio ns:Chronic neck pain with history of cervical spinal surgery TAKE 1 TABLET BY MOUTH TWICE A DAY IF NEEDED FOR PAIN 60 tablet 025 Active cetirizine (ZyrTEC) 10 MG tablet TAKE 1 TABLET BY MOUTH EVERY DAY 90 tablet 3 025 Active docusate sodium (Colace) 100 MG capsuleIndicati ons:Therapeutic opioid induced constipation Take 1 capsule (100 mg) by mouth 2 times daily. 180 capsule 025 Active fluticasone (Flonase) 50 MCG/ACT nasal sprayIndication s:Chronic neck pain with history of cervical spinal surgery SPRAY 2 SPRAYS INTO EACH NOSTRIL EVERY MORNING. 48 g 025 Active mometasone (Elocon) 0.1 % ointment APPLY TOPICALLY ONCE A DAY 45 g Active albuterol (2.5 MG/3ML) 0.083% nebulizer solutionIndicat ions:Unspecifie d asthma with (acute) exacerbation INHALE 1 AMPULE USING A NEBULIZER FOUR TIMES DAILY 90 mL 3 Active atorvastatin (Lipitor) 40 MG tabletIndicatio ns:Hypercholest erolemia TAKE 1 TABLET BY MOUTH EVERY DAY 90 tablet Active sildenafil (Viagra) 50 MG tabletIndicatio ns:Erectile dysfunction, unspecified erectile dysfunction type TAKE 1 TABLET 1 HOUR BEFORE SEXUAL RELATIONS ONCE DAILY NEEDED. 10 tablet Active oxyCODONE (Roxicodone) 10 MG immediate release tabletIndicatio ns:Chronic neck pain with history of cervical spinal surgery Take 1 tablet (10 mg) by mouth every 6 (six) hours if needed for severe pain for up to 28 days. 112 tablet 025 2024 Active LORazepam (Ativan) 0.5 MG tablet Take 1 tablet (0.5 mg) by mouth 1 (one) time if needed for anxiety for up to 2 doses. 30-40 minutes prior to MRI 2 tablet Active sildenafil (Viagra) 50 MG tabletIndicatio ns:Erectile dysfunction, unspecified erectile dysfunction type TAKE 1 TABLET 1 HOUR BEFORE SEXUAL RELATIONS ONCE DAILY NEEDED. 10 tablet 025 2024 Discontinued(R eorder (will not trigger notification to Pharmacy)) oxyCODONE (Roxicodone) 10 MG immediate release tabletIndicatio ns:Chronic neck pain with history of cervical spinal surgery Take 1 tablet (10 mg) by mouth every 6 (six) hours if needed for severe pain for up to 28 days. 112 tablet 025 2024 Discontinued(R eorder (will not trigger notification to Pharmacy)) LORazepam (Ativan) 0.5 MG tablet Take 1 tablet (0.5 mg) by mouth 1 (one) time if needed for anxiety for up to 1 dose. 30-40 minutes prior to MRI 1 tablet 025 2024 Discontinued Active Problems Problem Noted Date Diagnosed Date [...] 03/11/2023 Overview (03/12/2023): He was diagnosed at [facility], lesion was removed and he had numerous negative surveillance colonoscopies and sigmodoscopis after. Last negative colonoscopy was 2016 at [facility] and repeat in 3 years was recommended [...] Encounters Date Type Department Care Team Description 11/16/2024 Telephone [facility] [address] [place] [address] Eric Montoya MD Medication Question 11/16/2024 Refill [facility] [address] [place] [address] Eric Montoya MD Erectile dysfunction, unspecified erectile dysfunction type 11/16/2024 Refill [facility] [address] [place] [address] Eric Montoya MD Chronic neck pain with history of cervical spinal surgery 10/17/2024 Refill [facility] [address] [place] [address] Eric Montoya MD Chronic neck pain with history of cervical spinal surgery 10/14/2024 Telephone [facility] [address] [place] [address] Eric Montoya MD NTTS 10/13/2024 Refill [facility] [address] [place] [address] 76829 Eric Montoya MD Erectile dysfunction, unspecified erectile dysfunction type (Primary Dx); Essential hypertension; Chronic neck pain with history of cervical spinal surgery; Unspecified asthma with (acute) exacerbation; Chronic neck pain with history of cervical spinal surgery; Chest pain, unspecified type; Hypercholesterolemia; Therapeutic opioid induced constipation 10/13/2024 Telephone [facility] [address] [place] [address] Eric Montoya MD 10/03/2024 Telephone [facility] [address] [place] [address] 52927 Amanda Boone [place] november recalls 09/16/2024 Refill [facility] [address] [place] [address] 37983 Eric Montoya MD 09/16/2024 Refill [facility] [address] [place] [address] 38560 Eric Montoya MD Chronic neck pain with history of cervical spinal surgery 09/06/2024 9:15 AM EST Office Visit [facility] [address] [place] [address] 8[address] Eric Montoya MD Essential hypertension (Primary Dx); Allergic rhinitis, unspecified seasonality, unspecified trigger 09/06/2024 Travel from Last 3 Months Immunizations Name Administration [...] Description 12/28/2024 11:30 AM EDT Clinical Support [facility] [address] [place] [address] 39447 Andreia Lyles RN 01/11/2025 3:30 PM EDT Office Visit [facility] [address] [place] [address] 46[address] Name, MD Eric [address] [place] [address] Health Maintenance Due Date Last Done Comments [...] 07/15/2021, 10/13/2020, 09/13/2020 Influenza Vaccine (#1) 2024 9, 04/05/2018, 05/11/2017, Additional history exists Alcohol/Substance Use [...] this topic Meningococcal Vaccine Aged Out No tamiko elizabeth eligible based on patient's age to [...] of rectum Essential hypertension On statin therapy COLONOSCOPY Routine 04/29/2017 PROPHYLAXIS - ADULT Routine 01/06/2013 1 2:00 AM EDT INTRAORAL - COMPLETE SERIES OF RADIOGRAPHIC IMAGES Routine 03/10/2012 12:00 AM EDT COMPREHENSIVE ORAL EVALUATION - NEW OR ESTABLISHED PATIENT Routine 03/10/2012 12:00 AM EDT from Last 3 Months or Most Recently Relevant to Health Maintenance Results * (ABNORMAL) Lipid Panel, Standard (07/21/2023 10:32 AM EST) Triglycerides 87 <150 mg/dL [facility] Comment:Desirable Triglyceri de: less than 150 mg/dLBorderline High Triglyceride 150-199 mg/dLHigh Triglyceride: 200-499 mg/dLVery High Triglyceride: greater than or equal to 5OO mg/dL Cholesterol 205(H) <200 mg/dL [facility] Comment:Desirable Cholestero l: less than 200 mg/dLBorderline High Cholesterol: 200-239 mg/dLHigh Cholesterol: greater than 239 mg/dL LDL Cholesterol Calculated 120(H) <100 mg/dL [facility] Comment:Desirable LDL: less than 100 mg/dLNear Optimal/Above Optimal LDL: 110- 129 mg/dLBorderline High LDL: 130-159 mg/dLHigh LDL: 160-189 mg/dLVery High LDL: greater than or equal to 190 mg/dL HDL Cholesterol 68 >40 mg/dL [facility] Comment:Desirable HDL: great er than 40 mg/dL Note: This HDL assay may give artificially low results in patients with liver disease. Blood Venous blood specimen / Unknown 07/21/2023 10:32 AM EST 07/21/2023 10:59 AM EST Eric Montoya MD LAB BLOOD ORDERABLES Final Resul t [facility] [address] [place] [address] [phone] * (ABNORMAL) Colonoscopy (04/29/2017) Colonoscopy Abnormal(A ) Normal [facility] External Provider HEALTH MAINTENANCE Final Result from Last 3 Months or Most Recently Relevant to Health Maintenance Insurance [facility] STANDARD MEDICARE DENTAL-[facility] MEDICAID STAND ADULT Care Teams Energy Conservation Engineer Relationship Specialty Start Date End Date Name, MD Eric [address] [place] [address] PCP - General Family Medicine 09/14/15 Lauren Alexis, PharmD [address] [place] [address] [phone] Pharmacist Internal Medicine 04/19/24
--- OUTSIDE RECORDS SUMMARY | 2024-11-25 10:29 | XMS_ITS | Encounter Summary ---
Author Organization [employer] Address [address] [place] [address] 7 [place] [address] Care Team Providers Care Embalmer Assistant Name Role Phone Name, Eric MUNGUIA Primary Care Provider [phone] Lauren Alexis PharmD Unavailable [phone] Reason for Visit * Reason Onset Date Comments Med Refill 08/17/2024 Encounter Details Date Type Department Care Team (Late st Contact Info) Description 08/17/2024 Refill [facility] [address] [place], [place] [phone] Name, MD Eric [address] [place], [place] [phone] Social History Tobacco Use Types Packs/Day Years [...] Description 12/28/2024 11:30 AM EDT Clinical Support [facility] [address] [place] [address] 18462 Andreia Lyles RN 01/11/2025 3:30 PM EDT Office Visit [facility] [address] [place] [address] 9[address] Eric Montoya MD [address] [place] [address] 0[address] documented as of this encounter Visit Diagnoses Not on filedocumented in this encounter Additional Health Concerns Assessment Noted Time PHQ-9 Depression Total Score: 0 02/24/20 24 3:45 PM EDT documented as of this encounter Care Teams Embalmer Assistant Relationship Specialty Start Date End Date Eric Montoya MD [address] [place] [address] 52730 PCP - General Family Medicine 09/14/15 Lauren Alexis, AnnD [address] [place] [address] 45775 Pharmacist Internal Medicine 04/19/24 documented as of this encounter
--- OUTSIDE RECORDS SUMMARY | 2024-11-25 10:29 | XMS_ITS | Encounter Summary ---
Author Organization [employer] Address [address] [place] [address] 7 [place] [address] Care Team Providers Care Refining Machine Operator Name Role Phone Name, Eric MUNGUIA Primary Care Provider [phone] Lauren Alexis PharmD Unavailable [phone] Reason for Visit * Reason Onset Date Comments Med Refill 08/17/2024 Encounter Details Date Type Department Care Team (Late st Contact Info) Description 08/17/2024 Refill [facility] [address] [place], [place] [phone] Name, MD Eric [address] [place], [place] [phone] Social History Tobacco Use Types Packs/Day Years [...] 11:30 AM EDT Clinical Support [facility] [address] [place] [address] 94859 Andreia Lyles RN 01/11/2025 3:30 PM EDT Office Visit [facility] [address] [place] [address] 50816 Eric Montoya MD [address] [place] [address] 505[address] documented as of this encounter Visit Diagnoses Not on filedocumented in this encounter Additional Health Concerns Assessment Noted Time PHQ-9 Depression Total Score: 0 02/24/20 24 3:45 PM EDT documented as of this encounter Care Teams Refining Machine Operator Relationship Specialty Start Date End Date Eric Montoya MD [address] [place] [address] 75087 PCP - General Family Medicine 09/14/15 Lauren Alexis, AnnD [address] [place] [address] [phone] Pharmacist Internal Medicine 04/19/24 documented as of this encounter
--- OUTSIDE RECORDS SUMMARY | 2024-11-25 10:29 | XMS_ITS | Encounter Summary ---
Author Organization [employer] Address [address] [facility] 7t [place] [address] Care Team Providers Care Six Horse Hitch Driver Name Role Phone Name, Eric MUNGUIA Primary Care Provider [phone] Lauren Alexis PharmD Unavailable [phone] Reason for Visit * Reason Onset Date Comments Med Refill 08/17/2024 Encounter Details Date Type Department Care Team (Late st Contact Info) Description 08/17/2024 Refill [facility] 230 [place], [place] [phone] Name, MD Eric [address] [place], [place] [phone] Chest pain, unspecified type Social History Tobacco [...] 11:30 AM EDT Clinical Support [facility] [address] [place] [address] 54128 Andreia Lyles RN 01/11/2025 3:30 PM EDT Office Visit [facility] [address] [place] [address] Eric Montoya MD [address] [place] [address] 8[address] documented as of this encounter Visit Diagnoses Diagnosis Chest pain, unspecified type documented in this encounter Additional Health Concerns Assessment Noted Time PHQ-9 Depression Total Score: 0 02/24/20 24 3:45 PM EDT documented as of this encounter Care Teams Six Horse Hitch Driver Relationship Specialty Start Date End Date Eric Montoya MD [address] [place] [address] 17188 PCP - General Family Medicine 09/14/15 Lauren Alexis, Amanda [address] [place] [address] 80025 Pharmacist Internal Medicine 04/19/24 documented as of this encounter
--- OUTSIDE RECORDS SUMMARY | 2024-11-25 10:29 | XMS_ITS | Encounter Summary ---
Author Organization [employer] Address [address] [facility] 7t [place] [address] Care Team Providers Care Senior System Operator Name Role Phone Name, Eric MUNGUIA Primary Care Provider [phone] Lauren Alexis PharmD Unavailable [phone] Reason for Visit * Reason Onset Date Comments Med Refill 06/17/2024 Encounter Details Date Type Department Care Team (Late st Contact Info) Description 06/17/2024 Refill [facility] [address] [place], [place] [phone] Name, MD Eric 230 [place], [place] [phone] Social History Tobacco Use Types Packs/Day Years [...] Description 12/28/2024 11:30 AM EDT Clinical Support [facility] [address] [place] [address] 32574 Andreia Lyles RN 01/11/2025 3:30 PM EDT Office Visit [facility] [address] [place] [address] 80249 Eric Montoya MD [address] [place] [address] 62579 documented as of this encounter Visit Diagnoses Not on filedocumented in this encounter Additional Health Concerns Assessment Noted Time PHQ-9 Depression Total Score: 0 02/24/20 24 3:45 PM EDT documented as of this encounter Care Teams Senior System Operator Relationship Specialty Start Date End Date Eric Montoya MD [address] [place] [address] 03728 PCP - General Family Medicine 09/14/15 Lauren Alexis, AnnD [address] [place] [address] 34880 Pharmacist Internal Medicine 04/19/24 documented as of this encounter
--- OUTSIDE RECORDS SUMMARY | 2024-11-25 10:29 | XMS_ITS | Encounter Summary ---
Author Organization [employer] Address [address] [facility] 7t [place] [address] Care Team Providers Care Print Journalist Name Role Phone Name, Eric MUNGUIA Primary Care Provider [phone] Lauren Alexis PharmD Unavailable [phone] Reason for Visit * Reason Onset Date Comments Med Refill 05/26/2023 Encounter Details Date Type Department Care Team (Late st Contact Info) Description 05/26/[address] [facility] 230 [place], [place] [phone] Name, MD Eric 230 [place], [place] [phone] Chronic neck pain with history of cervical [...] Description 12/28/2024 11:30 AM EDT Clinical Support [address] [address] Andreia Lyles RN 01/11/2025 3:30 PM EDT Office Visit [address] [address] Name, MD Eric [address] [place] [address] 45638 documented as of this encounter Visit Diagnoses Diagnosis Chronic neck pain with history of cervical spinal surgery Essential hypertension Unspecified essential hypertension documented in this encounter Additional Health Concerns Assessment Noted Time PHQ-9 Depression Total Score: 0 12/24/19 23 4:02 PM EDT documented as of this encounter Care Teams Print Journalist Relationship Specialty Start Date End Date NameEric MD [address] [place] [address] 29570 PCP - General Family Medicine 09/14/15 Lauren Alexis PharmD [address] [place] [address] [phone] Pharmacist Internal Medicine 04/19/24 documented as of this encounter
--- OUTSIDE RECORDS SUMMARY | 2024-11-25 10:29 | XMS_ITS | Encounter Summary ---
Author Organization [employer] Address 75 [facility] 7t [place] [address] Care Team Providers Care Serology Teacher Name Role Phone Name, Eric MUNGUIA Primary Care Provider [phone] Lauren Alexis PharmD Unavailable [phone] Reason for Visit * Reason Onset Date Comments Med Refill 03/17/2024 Encounter Details Date Type Department Care Team (Late st Contact Info) Description 03/17/2024 Refill [facility] 230 [place], [place] [phone] Name, MD Eric 230 [place], [place] [phone] Chronic neck pain with history of cervical [...] Description 12/28/2024 11:30 AM EDT Clinical Support [facility] [address] [place] [address] 35871 Andreia Lyles RN 01/11/2025 3:30 PM EDT Office Visit [facility] [address] [place] [address] 33866 Eric Montoya MD [address] [place] [address] 32522 documented as of this encounter Visit Diagnoses Diagnosis Chronic neck pain with history of cervical spinal surgery documented in this encounter Additional Health Concerns Assessment Noted Time PHQ-9 Depression Total Score: 0 02/24/20 24 3:45 PM EDT documented as of this encounter Care Teams Serology Teacher Relationship Specialty Start Date End Date Eric Montoya MD [address] [place] [address] 80786 PCP - General Family Medicine 09/14/15 Lauren Alexis, Amanda [address] [place] [address] 50126 Pharmacist Internal Medicine 04/19/24 documented as of this encounter
--- OUTSIDE RECORDS SUMMARY | 2024-11-25 10:29 | XMS_ITS | Encounter Summary ---
Author Organization [employer] Address [address] [place] [address] 7t [place] [address] Care Team Providers Care Crystallographer Name Role Phone Name, Eric MUNGUIA Primary Care Provider [phone] Lauren Alexis PharmD Unavailable [phone] Reason for Visit * Reason Onset Date Comments Med Refill 05/20/2024 Encounter Details Date Type Department Care Team (Late st Contact Info) Description 05/20/2024 Refill [facility] 230 [place], [place] [phone] Name, MD Eric [address] [place], [place] [phone] Social History Tobacco Use Types Packs/Day Years [...] Clinical Support [facility] [address] [place] [address] 27686 Andreia Lyles RN 01/11/2025 3:30 PM EDT Office Visit [facility] [address] [place] [address] 69130 NameEric MD [address] [place] [address] 40345 documented as of this encounter Visit Diagnoses Not on filedocumented in this encounter Additional Health Concerns Assessment Noted Time PHQ-9 Depression Total Score: 0 02/24/20 24 3:45 PM EDT documented as of this encounter Care Teams Crystallographer Relationship Specialty Start Date End Date Eric Montoya MD [address] [place] [address]50 PCP - General Family Medicine 09/14/15 Lauren Alexis, AnnD [address] [place] [address] Pharmacist Internal Medicine 04/19/24 documented as of this encounter
--- OUTSIDE RECORDS SUMMARY | 2024-11-25 10:29 | XMS_ITS | Encounter Summary ---
Author Organization [employer] Address [address] [place] [address] 7 [place] [address] Care Team Providers Care Industrial Cafeteria Manager Name Role Phone Name, Eric MUNGUIA Primary Care Provider [phone] Lauren Alexis PharmD Unavailable [phone] Reason for Visit * Reason Onset Date Comments Med Refill 08/17/2024 Encounter Details Date Type Department Care Team (Late st Contact Info) Description 08/17/2024 Refill [facility] 230 [place], [place] [phone] Name, MD Eric 230 [place], [place] [phone] Social History Tobacco Use Types Packs/Day Years [...] 11:30 AM EDT Clinical Support [facility] [address] [place] [address] 04265 Andreia Lyles RN 01/11/2025 3:30 PM EDT Office Visit [facility] [address] [place] [address] 8[address] Eric Montoya MD [address] [place] [address] 23781 documented as of this encounter Visit Diagnoses Not on filedocumented in this encounter Additional Health Concerns Assessment Noted Time PHQ-9 Depression Total Score: 0 02/24/20 24 3:45 PM EDT documented as of this encounter Care Teams Industrial Cafeteria Manager Relationship Specialty Start Date End Date Eric Montoya MD [address] [place] [address] 42073 PCP - General Family Medicine 09/14/15 Lauren Alexis, AnnD [address] [place] [address] [phone] Pharmacist Internal Medicine 04/19/24 documented as of this encounter
--- OUTSIDE RECORDS SUMMARY | 2024-11-25 10:29 | XMS_ITS | Encounter Summary ---
Author Organization [employer] Address [address] [facility] 7t [place] [address] Care Team Providers Care Steward/Stewardess Wine Name Role Phone Name, Eric MUNGUIA Primary Care Provider [phone] Lauren Alexis PharmD Unavailable Reason for Visit * Reason Onset Date Comments Med Refill 05/18/2023 Encounter Details Date Type Department Care Team (Late st Contact Info) Description 05/18/2023 Telephone [facility] 230 [place], [place] [phone] Name, MD Eric 230 [place], [place] [phone] Med Refill Social History Tobacco Use Types [...] 11:30 AM EDT Clinical Support [facility] [address] [place] [address]43 Andreia Lyles RN 01/11/2025 3:30 PM EDT Office Visit [facility] [address] [place] [address] 43384 Name, MD Eric [address] [place] [address] documented as of this encounter Visit Diagnoses Not on filedocumented in this encounter Additional Health Concerns Assessment Noted Time PHQ-9 Depression Total Score: 0 12/24/19 23 4:02 PM EDT documented as of this encounter Care Teams Steward/Stewardess Wine Relationship Specialty Start Date End Date NameEric MD 230 [place] [address] PCP - General Family Medicine 09/14/15 Lauren Alexis PharmD 230 [place] [address] Pharmacist Internal Medicine 04/19/24 documented as of this encounter
--- OUTSIDE RECORDS SUMMARY | 2024-11-25 10:29 | XMS_ITS | Encounter Summary ---
Author Organization [employer] Address [address] [place] [address] 7t [place] [address] Care Team Providers Care Monkey Breeder Name Role Phone Name, Eric MUNGUIA Primary Care Provider [phone] Lauren Alexis PharmD Unavailable Reason for Visit * Reason Onset Date Comments Results 12/24/2022 MRI shoulder w/o contrast right. Encounter Details Date Type Department Care Team (Late st Contact Info) Description 12/24/2022 Telephone [facility] MEDICINE [address] [place], [place] [phone] Name, MD Eric 230 [place], [place] [phone] Results (MRI shoulder w/o contrast right. //) [...] Description 12/28/2024 11:30 AM EDT Clinical Support [facility] MED[facility]INE [address] [place] [address] Andreia Lyles RN 01/11/2025 3:30 PM EDT Office Visit [facility] [address] [place] [address] Name, MD Eric [address] [place] [address] documented as of this encounter Visit Diagnoses Not on filedocumented in this encounter Additional Health Concerns Assessment Noted Time PHQ-9 Depression Total Score: 0 12/24/19 23 4:02 PM EDT documented as of this encounter Care Teams Monkey Breeder Relationship Specialty Start Date End Date Name, MD Eric [address] [place] [address] PCP - General Family Medicine 09/14/15 Lauren Alexis PharmD [address] [place] [phone] Pharmacist Internal Medicine 04/19/24 documented as of this encounter
--- OUTSIDE RECORDS SUMMARY | 2024-11-25 10:29 | XMS_ITS | Encounter Summary ---
Author Organization [employer] Address [address] [facility] 7t [place] [address] Care Team Providers Care Clinical Marketing Manager Name Role Phone Name, Eric MUNGUIA Primary Care Provider [phone] Lauren Alexis PharmD Unavailable [phone] Reason for Visit * Reason Onset Date Comments Med Refill 08/17/2024 Encounter Details Date Type Department Care Team (Late st Contact Info) Description 08/17/2024 Refill [facility] MEDICINE 230 [place], [place] [phone] Name, MD Eric [address] [place], [place] [phone] Essential hypertension Social History Tobacco Use Types [...] Description 12/28/2024 11:30 AM EDT Clinical Support [facility] MEDICINE [address] [place] [phone] Andreia Lyles RN 01/11/2025 3:30 PM EDT Office Visit [facility]INE [address] [place] [phone] Eric Montoya MD [address] [place] [address] documented as of this encounter Visit Diagnoses Diagnosis Essential hypertension Unspecified essential hypertension documented in this encounter Additional Health Concerns Assessment Noted Time PHQ-9 Depression Total Score: 0 02/24/20 24 3:45 PM EDT documented as of this encounter Care Teams Clinical Marketing Manager Relationship Specialty Start Date End Date Eric Montoya MD [address] [place] [phone] PCP - General Family Medicine 09/14/15 Lauren Alexis, Amanda [address] [place] [phone] Pharmacist Internal Medicine 04/19/24 documented as of this encounter
--- OUTSIDE RECORDS SUMMARY | 2024-11-25 10:29 | XMS_ITS | Encounter Summary ---
Author Organization [employer] Address [address] [facility] 7t [place] [address] Care Team Providers Care Yarn Bleaching Machine Operator Name Role Phone Name, Eric MUNGUIA Primary Care Provider [phone] Lauren Alexis PharmD Unavailable [phone] Reason for Visit * Reason Onset Date Comments Med Refill 05/18/2024 Encounter Details Date Type Department Care Team (Late st Contact Info) Description 05/18/2024 Refill [facility] [address] [place] [address] Name, MD Eric [address] [place] [address] Social History Tobacco Use Types Packs/Day Years [...] Description 12/28/2024 11:30 AM EDT Clinical Support [facility] MEDICINE [address] [place] [address] Andreia Lyles RN 01/11/2025 3:30 PM EDT Office Visit [facility] [address] [place] [address] Eric Montoya MD [address] [place] [address] documented as of this encounter Visit Diagnoses Not on filedocumented in this encounter Additional Health Concerns Assessment Noted Time PHQ-9 Depression Total Score: 0 02/24/20 24 3:45 PM EDT documented as of this encounter Care Teams Yarn Bleaching Machine Operator Relationship Specialty Start Date End Date Eric Montoya MD [address] [place] [address] PCP - General Family Medicine 09/14/15 Lauren Alexis, PharmD [address] [place] [phone] Pharmacist Internal Medicine 04/19/24 documented as of this encounter
--- OUTSIDE RECORDS SUMMARY | 2024-11-25 10:29 | XMS_ITS | Encounter Summary ---
Author Organization [employer] Address [address] [facility] 7t [place] [address] Care Team Providers Care Airport Electrician Name Role Phone Name, Eric MUNGUIA Primary Care Provider [phone] Lauren Alexis PharmD Unavailable [phone] Reason for Visit * Reason Onset Date Comments Med Refill 08/17/2024 Encounter Details Date Type Department Care Team (Late st Contact Info) Description 08/17/2024 Refill [facility] MEDICINE 230 [place], [place] [phone] Name, MD Eric 230 [place], [place] [phone] Essential hypertension Social History Tobacco Use Types [...] Description 12/28/2024 11:30 AM EDT Clinical Support [facility] MEDICINE [address] [place] [phone] Andreia Lyles RN 01/11/2025 3:30 PM EDT Office Visit [facility] MEDICINE [address] [place] [phone] Eric Montoya MD [address] [place] [address] documented as of this encounter Visit Diagnoses Diagnosis Essential hypertension Unspecified essential hypertension documented in this encounter Additional Health Concerns Assessment Noted Time PHQ-9 Depression Total Score: 0 02/24/20 24 3:45 PM EDT documented as of this encounter Care Teams Airport Electrician Relationship Specialty Start Date End Date Eric Montoya MD [address] [place] [address] PCP - General Family Medicine 09/14/15 Lauren Alexis, Amanda [address] [place] [phone] Pharmacist Internal Medicine 04/19/24 documented as of this encounter
--- OUTSIDE RECORDS SUMMARY | 2024-11-25 10:29 | XMS_ITS | Encounter Summary ---
Author Organization [employer] Address [address] [facility] 7t [place] [address] Care Team Providers Care Equity Research Associate Name Role Phone Name, Eric MUNGUIA Primary Care Provider [phone] Lauren Alexis PharmD Unavailable [phone] Reason for Visit * Reason Onset Date Comments Med Refill 03/17/2024 Encounter Details Date Type Department Care Team (Late st Contact Info) Description 03/17/2024 Refill [facility] MEDICINE 230 [place], [place] [phone] Name, MD Eric 230 [place], [place] [phone] Chronic neck pain with history of cervical [...] Description 12/28/2024 11:30 AM EDT Clinical Support [facility] MEDICINE [address] [place] [phone] Andreia Lyles RN 01/11/2025 3:30 PM EDT Office Visit [facility] MEDICINE [address] [place] [phone] Eric Montoya MD [address] [place] [address] documented as of this encounter Visit Diagnoses Diagnosis Chronic neck pain with history of cervical spinal surgery documented in this encounter Additional Health Concerns Assessment Noted Time PHQ-9 Depression Total Score: 0 02/24/20 24 3:45 PM EDT documented as of this encounter Care Teams Equity Research Associate Relationship Specialty Start Date End Date Eric Montoya MD [address] [place] [address] PCP - General Family Medicine 09/14/15 Lauren Alexis, Amanda [address] [place] [address] [phone] Pharmacist Internal Medicine 04/19/24 documented as of this encounter
--- OUTSIDE RECORDS SUMMARY | 2024-11-25 10:29 | XMS_ITS | Encounter Summary ---
Author Organization [employer] Address [address] [place] [address] 7 [place] [address] Care Team Providers Care Veterinary Milk Specialist Name Role Phone Name, Eric MUNGUIA Primary Care Provider [phone] Lauren Alexis PharmD Unavailable [phone] Reason for Visit * Reason Onset Date Comments Med Refill 08/17/2024 Encounter Details Date Type Department Care Team (Late st Contact Info) Description 08/17/2024 Refill [facility] MEDICINE 230 [place], [place] [phone] Name, MD Eric 230 [place], [place] [phone] Social History Tobacco Use Types Packs/Day Years [...] Description 12/28/2024 11:30 AM EDT Clinical Support [facility] MEDICINE [address] [place] [address] Andreia Lyles RN 01/11/2025 3:30 PM EDT Office Visit [facility] MED[facility]INE [address] [place] [address] Eric Montoya MD [address] [place] [address] documented as of this encounter Visit Diagnoses Not on filedocumented in this encounter Additional Health Concerns Assessment Noted Time PHQ-9 Depression Total Score: 0 02/24/20 24 3:45 PM EDT documented as of this encounter Care Teams Veterinary Milk Specialist Relationship Specialty Start Date End Date Eric Montoya MD [address] [place] [address] 9[address] PCP - General Family Medicine 09/14/15 Lauren Alexis, AnnD [address] [place] [address] [phone] Pharmacist Internal Medicine 04/19/24 documented as of this encounter
--- OUTSIDE RECORDS SUMMARY | 2024-11-25 10:29 | XMS_ITS | Encounter Summary ---
Author Organization [employer] Address [address] [place] [address] 7 [place] [address] Care Team Providers Care Mortgage Loan Officer Originator Name Role Phone Name, Eric MUNGUIA Primary Care Provider [phone] Lauren Alexis PharmD Unavailable Reason for Visit * Reason Comments Med Refill Encounter Details Date Type Department Care Team (Late st Contact Info) Description 04/17/2023 Refill [facility] MEDICINE 230 [place] [address] Name, MD Eric 230 [place] [address] Erectile dysfunction, unspecified erectile dysfunction type; Chronic [...] 12/28/2024 11:30 AM EDT Clinical Support [facility] MEDICINE 230 [place] [address] Andreia Lyles, BUSTER 01/11/2025 3:30 PM EDT Office Visit [facility] MEDICINE [address] [place] [address] Name, MD Eric [address] [place] [address] documented as of this encounter Visit Diagnoses Diagnosis Erectile dysfunction, unspecified erectile dysfunction type Chronic neck pain with history of cervical spinal surgery documented in this encounter Additional Health Concerns Assessment Noted Time PHQ-9 Depression Total Score: 0 12/24/19 23 4:02 PM EDT documented as of this encounter Care Teams Mortgage Loan Officer Originator Relationship Specialty Start Date End Date Name, MD Eric [address] [place] [address] PCP - General Family Medicine 09/14/15 Lauren Alexis PharmD [address] [place] [address] [phone] Pharmacist Internal Medicine 04/19/24 documented as of this encounter
== END ==
LOC: HO.CARD 09:58
PROVIDERS: PCP Internal Medicine Geriatric Medicine; Visit Provider Internal Medicine Cardiovascular Disease
DX: Z13.89 Encounter for screening for other disorder (principal)

== ENCOUNTER 2025-01-05 09:36 | Outpatient (REF) | payer MEDICARE, MEDICAID, SELFPAY ==
--- OUTSIDE RECORDS SUMMARY | 2025-01-05 10:33 | XMS_ITS | Encounter Summary ---
Author Organization [employer] Address [address] [place] [address] 7t [place] [address] Care Team Providers Care Welfare Analyst Name Role Phone Name, Eric MUNGUIA Primary Care Provider [phone] Lauren Alexis PharmD Unavailable Reason for Visit * Reason Onset Date Comments Med Refill 01/23/2023 Encounter Details Date Type Department Care Team (Late st Contact Info) Description 01/23/2023 Refill [facility] [address] [place] [address] Yudelka Kaiser MD 230 [place], [place] [phone] Essential hypertension Social History Tobacco Use Types [...] Care Team (Late st Contact Info) Description 01/11/2025 3:30 PM EDT Office Visit [facility] MEDICINE 230 [place] [address] Name, MD Eric [address] [place] [address] 06/29/2025 2:00 PM EST Clinical Support [facility] MEDICINE 230 [place] [address] Andreia Lyles, RN documented as of this encounter Visit Diagnoses Diagnosis Essential hypertension Unspecified essential hypertension documented in this encounter Additional Health Concerns Assessment Noted Time PHQ-9 Depression Total Score: 0 12/24/19 23 4:02 PM EDT documented as of this encounter Care Teams Welfare Analyst Relationship Specialty Start Date End Date Name, [place] [address] PCP - General Family Medicine 09/14/15 Lauren Alexis PharmD [address] [place] [phone] Pharmacist Internal Medicine 04/19/24 01/03/25 documented as of this encounter
[2025-01-05 11:18] LABS: Erythrocyte Sedimentation Rate 1 MM/HR (0-15)
[2025-01-05 11:57] LABS: Alanine Aminotransferase 41 U/L (0-40); Albumin Level 4.1 g/dL (3.5-5.0); Alkaline Phosphatase 75 U/L (39-117); Anion Gap 10 (12-20); Aspartate Amino Transferase 24 U/L (5-37); Bilirubin Direct 0.1 mg/dL (0.0-0.5); Bilirubin Total 0.3 mg/dL (0.0-1.0); Blood Urea Nitrogen 18 mg/dL (9-16); Calcium 9.1 mg/dL (8.4-10.2); Carbon Dioxide 23 mmol/L (22-29); Chloride 108 mmol/L (96-108); Cholesterol 209 mg/dL (<200); Estimated Glomerular Filt Rate > 60; Glucose Random 82 mg/dL (60-115); HDL Cholesterol 56 mg/dL (>40); LDL Cholesterol Calculated 129 mg/dL (<100); Potassium 3.7 mmol/L (3.3-5.1); Sodium 137 mmol/L (135-145); Total Protein 6.8 g/dL (6.5-8.0); Triglycerides 120 mg/dL (<150)
== END 2025-01-05 09:37 | disposition home or self-care (01) ==
LOC: HO.LAB 09:36
PROVIDERS: Absent Provider Internal Medicine Geriatric Medicine; PCP Internal Medicine Geriatric Medicine; Visit Provider Physical Medicine & Rehabilitation
DX: E78.00 Pure hypercholesterolemia, unspecified (principal); I10 Essential (primary) hypertension; M35.3 Polymyalgia rheumatica
CPT/HCPCS: 36415; 80048; 80061; 80076; 85652

== ENCOUNTER → 2025-01-10 10:49 | Outpatient (REF) | payer MEDICARE, MEDICAID, SELFPAY ==
--- NOTE | 2025-01-10 10:51 | CA_ITS ---
Acquisition Time: 2025-01-10 11:20:41 Total Exercise Time: 00:06:11 Test Indications: CP Medications: SEE H&P Protocol: DONNY Max HR: 141 BPM 92% of Pred: 153 BPM Max BP: 174/90 mmHG Max Work Load: 7.0 METS Exercise stress test with exercise 6 mins 11 secs of Donny Protocol, achieving 89% MPHR, with reports of SOB, no chest pain, with very frequent PACs and PVCs, brief atrial runs- max 3 beats and 3 ventricular couplets, with normotensive response to exercise. Without EKG changes meeting criteria for ischemia. In recovery, breathing returned to baseline. Echo images were obtained by tech at rest and post peak exercise. Definity contrast utilized. Test reviewed with Dr. Mederos. Referred By: Jameson Givens Electronically Signed By: Jameson Givens
--- OUTSIDE RECORDS SUMMARY | 2025-01-10 12:13 | XMS_ITS | Encounter Summary ---
Author Organization [employer] Address [address] [place] [address] 7t [place] [address] Care Team Providers Care Plain Clothes Police Officer Name Role Phone Name, Eric MUNGUIA Primary Care Provider [phone] Lauren Alexis PharmD Unavailable Reason for Visit * Reason Onset Date Comments Med Refill 01/23/2023 Encounter Details Date Type Department Care Team (Late st Contact Info) Description 01/23/2023 Refill [facility] [address] [place] [phone] Yudelka Kaiser MD 230 [place], [place] [phone] Essential hypertension Social History Tobacco Use Types [...] Description 01/11/2025 3:30 PM EDT Office Visit [facility] MEDICINE 230 [place] [address] Name, MD Eric [address] [place] [address] 06/29/2025 2:00 PM EST Clinical Support [facility] MEDICINE [address] [place] [address] Andreia Lyles, RN documented as of this encounter Visit Diagnoses Diagnosis Essential hypertension Unspecified essential hypertension documented in this encounter Additional Health Concerns Assessment Noted Time PHQ-9 Depression Total Score: 0 12/24/19 23 4:02 PM EDT documented as of this encounter Care Teams Plain Clothes Police Officer Relationship Specialty Start Date End Date Name, [place] [address] PCP - General Family Medicine 09/14/15 Lauren Alexis PharmD [address] [place] [phone] Pharmacist Internal Medicine 04/19/24 01/03/25 documented as of this encounter
== END ==
LOC: HO.CARD 10:49
PROVIDERS: PCP Internal Medicine Geriatric Medicine
DX: R07.89 Other chest pain (principal)
CPT/HCPCS: 93350; Q9957

== ENCOUNTER → 2025-01-10 10:51 | Outpatient (BNV) | payer MEDICARE, MEDICAID, SELFPAY | PROVIDERS: PCP Internal Medicine Geriatric Medicine | DX: R06.02 Shortness of breath (principal); I49.1 Atrial premature depolarization; I49.3 Ventricular premature depolarization | CPT/HCPCS: 93016; 93018; 93350; 93352 ==